=== PATIENT | male | born 1995 | race Caucasian/White ===

== ENCOUNTER 2017-03-29 18:19 | Inpatient (IN) | payer OTHER ==
[~2017-03-29] VITALS: Ht 170.2 cm; Wt 78.5 kg
[2017-03-29] MEDS ORDERED: IPRATRPIUM/ALBUTEROL 0.5/2.5MG 3 ML NEBU. NEB ONE (18:30)
[2017-03-29] MEDS ORDERED: PROAIR HFA8.5 GM INH (18:50)
[2017-03-29] MEDS ORDERED: ALBU2.5V5 NEB (18:50)
[2017-03-29] MEDS ORDERED: methylPREDNISolone SOD SUCC PF 125 MG/2 ML VIAL. IV ONE (19:00)
[2017-03-29] MEDS ORDERED: ALBUTEROL SULFATE 2.5 MG/3 ML NEBU. CONT NEB ONE (20:00)
[2017-03-29] MEDS ORDERED: IV NORMAL SALINE 1000ML BAG 1,000 ML IV SCH (20:08)
[2017-03-29 20:18] LABS: BASO # 0.1 x10^3/uL (0.0-0.2); BASO % 1 % (0-3); EOS % 9 % (0-3); HEMATOCRIT 44.6 % (39.0-53.0); HEMOGLOBIN 15.2 g/dL (13.0-17.5); LYMPH # 1.4 x10^3/uL (1.0-4.8); LYMPH % 13 % (24-48); MEAN CORPUSCULAR HEMOGLOBIN 30 pg (25-35); MEAN CORPUSCULAR HGB CONC 34 g/dL (31-37); MEAN CORPUSCULAR VOLUME 88 fL (79-100); MONO % 8 % (0-9); NEUT % 70 % (31-73); PLATELET COUNT 161 x10^3/uL (140-400); RED BLOOD COUNT 5.05 x10^6/uL (4.30-5.70); RED CELL DISTRIBUTION WIDTH 13.1 % (11.5-14.5); WHITE BLOOD COUNT 10.8 x10^3/uL (4.0-11.0)
--- NOTE | 2017-03-29 20:32 | PHYS DOC ---
Past Medical History Past Medical History: Asthma Past Surgical History: No Surgical History Alcohol Use: Rarely Drug Use: Marijuana Social History Narrative: HAS NOT SMOKED MARIJUANA SINCE EARLY SUMMER Adult General Chief Complaint Chief Complaint: DYSPNEA/RESPIRATOY DISTRESS HPI HPI Patient is a 22 year old male with a history of asthma brought by EMS from an outdoor concert with the complaint of wheezing today. The patient had a breathing treatment at home this morning, then just a while ago he had another one because he keeps a portable nebulizer in his car. In between, he's used his inhaler many times, maybe up to 50 times. Patient has never been intubated. He was seen in ER several months ago but not admitted. Patient has a lifelong history of asthma. Review of Systems Review of Systems Constitutional: Denies fever or chills [] HENT: Denies nasal congestion or sore throat [] Respiratory: As in history of present illness Cardiovascular: Denies chest pain GI: Denies abdominal pain, nausea, vomiting, bloody stools or diarrhea [] : Denies dysuria or hematuria [] Musculoskeletal: Denies back pain or joint pain [] Integument: Denies rash or skin lesions [] Neurologic: Denies headache, focal weakness or sensory changes [] Current Medications Current Medications Current Medications Medications (Trade) Dose Ordered Sig/Khadijah Start Time Stop Time Status Last Admin Dose Admin Albuterol Sulfate (Ventolin Neb Soln) 10 mg 1X ONCE 03/29/17 20:00 03/29/17 20:01 DC 03/29/17 19:45 10 MG Albuterol/ Ipratropium (Duoneb) 3 ml 1X ONCE 03/29/17 18:30 03/29/17 18:50 DC 03/29/17 18:36 3 ML Magnesium Sulfate/ Dextrose 50 ml @ 25 mls/hr 1X ONCE 03/29/17 20:45 03/29/17 22:44 03/29/17 20:31 25 MLS/HR Methylprednisolone Sodium Succinate (SOLU-Medrol 125MG VIAL) 80 mg 1X ONCE 03/29/17 19:00 03/29/17 19:01 DC 03/29/17 19:12 80 MG Sodium Chloride 1,000 ml @ 100 mls/hr Q10H 03/29/17 20:08 03/30/17 06:07 03/29/17 20:31 100 MLS/HR Allergies Allergies Allergies Coded Allergies Type Severity Reaction Last Updated Verified No Known Drug Allergies 03/29/17 No Physical Exam Physical Exam Constitutional: Well developed, well nourished, alert, mentating normally, warm and dry. Appears mildly dyspneic but he is speaking in full sentences. Pulse ox on room air 92-93%. HENT: Normocephalic, atraumatic, bilateral external ears normal, nose normal. [ ] Eyes: conjunctiva normal, no discharge. [] Neck: Normal range of motion, no stridor. No retractions. Cardiovascular:Heart rate regular rhythm, no murmur [] Lungs & Thorax: Moderately decreased breath sounds bilaterally. Prolonged expiratory phase. Inspiratory and expiratory wheezes throughout. Skin: Warm, dry, no erythema, no rash. [] Extremities: No tenderness, no cyanosis, no clubbing, ROM intact, no edema. [] Neurologic: Alert and oriented X 3, normal motor function, normal sensory function, no focal deficits noted. [] Current Patient Data Vital Signs Vital Signs Date Time Temp Pulse Resp B/P (MAP) Pulse Ox O2 Delivery O2 Flow Rate FiO2 03/29/17 20:20 106 13 133/64 (87) 91 Venturi Mask 6.0 03/29/17 18:19 98.4 98.4 Lab Values Laboratory Tests Test 03/29/17 18:26 03/29/17 20:08 White Blood Count 10.8 x10^3/uL (4.0-11.0) Red Blood Count 5.05 x10^6/uL (4.30-5.70) Hemoglobin 15.2 g/dL (13.0-17.5) Hematocrit 44.6 % (39.0-53.0) Mean Corpuscular Volume 88 fL (79-100) Mean Corpuscular Hemoglobin 30 pg (25-35) Mean Corpuscular Hemoglobin Concent 34 g/dL (31-37) Red Cell Distribution Width 13.1 % (11.5-14.5) Platelet Count 161 x10^3/uL (140-400) Neutrophils (%) (Auto) 70 % (31-73) Lymphocytes (%) (Auto) 13 % (24-48) L Monocytes (%) (Auto) 8 % (0-9) Eosinophils (%) (Auto) 9 % (0-3) H Basophils (%) (Auto) 1 % (0-3) Neutrophils # (Auto) 7.5 x10^3uL (1.8-7.7) Lymphocytes # (Auto) 1.4 x10^3/uL (1.0-4.8) Monocytes # (Auto) 0.9 x10^3/uL (0.0-1.1) Eosinophils # (Auto) 0.9 x10^3/uL (0.0-0.7) H Basophils # (Auto) 0.1 x10^3/uL (0.0-0.2) O2 Saturation 93 % (92-99) Arterial Blood pH 7.43 (7.35-7.45) Arterial Blood pCO2 at Patient Temp 37 mmHg (35-46) Arterial Blood pO2 at Patient Temp 67 mmHg (85-108) L Arterial Blood HCO3 24 mmol/L (21-28) Arterial Blood Base Excess 0 mmol/L (-3-3) Oxyhemoglobin 92.4 % Methemoglobin 0.5 % (0.0-1.9) Carbon Monoxide, Quantitative 0.2 % (0.0-1.9) FiO2 28 Laboratory Tests 03/29/17 18:26 EKG EKG [] Radiology/Procedures Radiology/Procedures One view portable chest x-ray read by me. Heart size normal. Lung chaudhary are clear. Flattened hemidiaphragms consistent with hyperinflation. No pneumothorax. [] Course & Med Decision Making Course & Med Decision Making Pertinent Labs and Imaging studies reviewed. (See chart for details) 22-year-old male with a history of asthma presents by EMS after using his inhaler possibly 50 times, and 3 nebulized treatments today, one this morning, one self administered prior to calling 911, and 1 by EMS. The patient presents with inspiratory and expiratory wheezes but is alert and mentating normally and speaking in full sentences. He was given a DuoNeb and a dose of IV steroids. After 1 DuoNeb, nursing staff reported that the patient does not seem to be better and is requesting more nebulized treatments. We began an hour-long nebulizer. I rechecked the patient and he appears more dyspneic, speaking only 3-4 words. Pulse ox 92-93% on 2 L by nasal cannula. He is currently having his hour-long nebulizer with albuterol. Patient tells me that he was up to the bathroom and became very short of air with that minimal exertion. I advised the patient we will need to admit him and also started a magnesium IV infusion. He is agreeable to that plan. I ordered ABGs, I am unclear on whether the patient was on 2 L by nasal cannula or whether he was on room air. He was getting a nebulized albuterol treatment at the time. PH 7.4-5, PCO2 37, P O2 66.7. Hypoxemia without acid-base disturbance. I discussed the case with Dr. davalos, [facility], he will admit the patient. I wrote bridge orders. The patient will be admitted to the intensive care unit for status asthmaticus and worsening while in the emergency department. The patient remains relatively hypoxic in the low 90s on room air. Critical care time 45 minutes including bedside evaluation and multiple re- evaluations, evaluation for change in status after treatments, evaluation of chest x-ray and ABG, documentation, writing orders. [] Dragon Disclaimer Dragon Disclaimer This electronic medical record was generated, in whole or in part, using a voice recognition dictation system. Departure Departure Impression: Primary Impression: Status asthmaticus Disposition: ADMITTED INPATIENT Admitting Physician: Eloisa Davalos Condition: GUARDED Referrals: UNKNOWN PCP NAME (PCP) JUSTINE CAMPOS MD Mar 29, 2017 20:32
[2017-03-29] MEDS ORDERED: MAGNESIUM SULFATE 2GM 50 ML IV ONE (20:45)
[2017-03-29 21:18] LABS: BASE EXCESS COOX 0 mmol/L (-3-3); CARBON MONOXIDE 0.2 % (0.0-1.9); HCO3 COOX 24 mmol/L (21-28); METHEMOGLOBIN 0.5 % (0.0-1.9); OXYHEMOGLOBIN 92.4 %; PCO2 COOX 37 mmHg (35-46); PH COOX 7.43 (7.35-7.45); PO2 COOX 67 mmHg (85-108); SAT O2 COOX 93 % (92-99); TOTAL HEMOGLOBIN 15.9 g/dL
[2017-03-29 21:19] LABS: FIO2 COOX 28
[2017-03-29 21:30] LABS: CALCIUM 8.9 mg/dL (8.5-10.1); CREATININE 0.8 mg/dL (0.7-1.3); GFR 118.8; POTASSIUM 3.7 mmol/L (3.5-5.1)
[2017-03-29 21:36] LABS: ALBUMIN 4.2 g/dL (3.4-5.0); ALBUMIN/GLOBULIN RATIO 1.4 (1.0-1.7); TOTAL BILIRUBIN 0.5 mg/dL (0.2-1.0); TOTAL PROTEIN 7.3 g/dL (6.4-8.2)
[2017-03-29 21:40] VITALS: BP 128/64
[2017-03-29 22:00] VITALS: BP 131/62
[2017-03-29] MEDS ORDERED: NICOTINE 14MG PATCH. TD PRN (22:00)
[2017-03-29] MEDS ORDERED: ALBUTEROL SULFATE 2.5 MG/3 ML NEBU. NEB PRN (22:00)
[2017-03-29] MEDS ORDERED: BUDESONIDE 0.5 MG/2 ML NEBU. NEB ONE (22:00)
--- NOTE | 2017-03-29 22:23 | PDOC1 ---
History and Physical Date of Admission Date of Admission DATE: 03/29/17 TIME: 22:15 Identification/Chief Complaint Chief Complaint short of breath Problems: Source Source: Chart review, Patient History of Present Illness History of Present Illness he has long hx of asthma, has been off Advair for 6 mos, did not get refilled when traveling in [place], he lived there for 6 months. He had been feeling well, was at a concert today, and needed to use his portable neb machine "all Day" about 50 times per the ER note. he is admit to ICU, is marked distress, can talk in almost complete sentences, but then needs to catch his breath, pressing his hands on his thighs to expand his lung volume better when seated no sore throat, large headache with cough, pleuriticu pain with cough, cough with sputum and blood in sputum pain OK at rest, exac seem to 10 wtih events. recent ongoing tobacco use Social History Smoke: <1 pack per day ALCOHOL: none Drugs: None, Other (quit THC) Current Problem List Problem List Problems Medical Problems: (1) Status asthmaticus Status: Acute Problems: Current Medications Current Medications Current Medications Albuterol/ Ipratropium (Duoneb) 3 ml 1X ONCE NEB Last administered on 18:36; Start 03/29/17 at 18:30; Stop 03/29/17 at 18:50; Status DC Methylprednisolone Sodium Succinate (SOLU-Medrol 125MG VIAL) 80 mg 1X ONCE IV Last administered on 03/29/17 19:12; Start 03/29/17 at 19:00; Stop 03/29/17 at 19: 01; Status DC Albuterol Sulfate (Ventolin Neb Soln) 10 mg 1X ONCE CONT NEB Last administered on 03/29/17 19:45; Start 03/29/17 at 20:00; Stop 03/29/17 at 20:01; Status DC Sodium Chloride 1,000 ml @ 100 mls/hr Q10H IV Last administered on 03/29/17 20 :31; Start 03/29/17 at 20:08; Stop 03/30/17 at 06:07 Magnesium Sulfate/ Dextrose 50 ml @ 25 mls/hr 1X ONCE IV Last administered on 03/29/17 20:31; Start 03/29/17 at 20:45; Stop 03/29/17 at 22:44 Sodium Chloride 1,000 ml @ 100 mls/hr Q10H IV ; Start 03/29/17 at 21:15; Stop at 21:14 Albuterol/ Ipratropium (Duoneb) 3 ml Q4HRS NEB ; Start 03/30/17 at 00:00; Stop 03/30/17 at 23:59 Budesonide (Pulmicort) 0.5 mg 1X ONCE NEB ; Start 03/29/17 at 22:00; Stop at 22:01; Status UNV Budesonide (Pulmicort) 0.5 mg RTBID NEB ; Start 03/30/17 at 08:00; Status UNV Active Scripts Active Reported Albuterol Sulfate Neb Soln (Albuterol Sulfate) 2.5 Mg/3 Ml Vial.neb 1 Vial NEB PRN Q4HRS Proair Hfa Inhaler (Albuterol Sulfate) 8.5 Gm Hfa.aer.ad 1 Puff INH PRN Q6HRS PRN Allergies Allergies: Coded Allergies: No Known Drug Allergies (Unverified , 03/29/17) ROS General: YES: Fatigue, Malaise, No: Chills, Night Sweats, Appetite, Other PSYCHOLOGICAL ROS: No: Anxiety, Behavioral Disorder, Concentration difficultie , Decreased libido, Depression, Disorientation, Hallucinations, Hostility, Irritablity, Memory difficulties, Mood Swings, Obsessive thoughts, Physical abuse, Sexual abuse, Sleep disturbances, Suicidal ideation, Other Eyes: No Blurry vision, No Decreased vision, No Double vision, No Dry eyes, No Excessive tearing, No Eye Pain, No Itchy Eyes, No Loss of vision, No Photophobia , No Scotomata, No Uses contacts, No Uses glasses, No Other HEENT: YES: Heacaches, Nasal congestion, No: Visual Changes, Hearing change, Nasal discharge, Oral lesions, Sinus pain , Sore Throat, Epistaxis, Sneezing, Snoring, Tinnitus, Vertigo, Vocal changes, Other Respiratory: YES: Cough, Pleuritic Pain, Sputum Changes, Tachypnea, Wheezing, Other (bloody sputum), No: Hemoptysis, Orthopnea, Shortness of breath, SOB with excertion, Stridor Cardiovascular: yes Chest Pain, No Palpitations, No Orthopnea, No Paroxysmal Noc. Dyspnea, No Edema, No Lt Headedness, No Other Gastrointestinal: No Nausea, No Vomiting, No Abdominal Pain, No Diarrhea, No Constipation, No Melena, No Hematochezia, No Other Genitourinary: No Dysuria, No Frequency, No Incontinence, No Hematuria, No Retention, No Discharge, No Urgency, No Pain, No Flank Pain, No Other, No , No , No , No , No , No , No Musculoskeletal: No Gait Disturbance, No Joint Pain, No Joint Stiffness, No Joint Swelling, No Muscle Pain, No Muscular Weakness, No Pain In:, No Swelling In:, No Other Neurological: No Behavorial Changes, No Bowel/Bladder ControlChng, No Confusion , No Dizziness, No Gait Disturbance, No Headaches, No Impaired Coord/balance, No Memory Loss, No Numbness/Tingling, No Seizures, No Speech Problems, No Tremors, No Visual Changes, No Weakness, No Other Skin: No Dry Skin, No Eczema, No Hair Changes, No Lumps, No Mole Changes, No Mottling, No Nail Changes, No Pruritus, No Rash, No Skin Lesion Changes, No Other, No Acne Physical Exam Physical Exam using accessory muscle to breath, pressing down with his hands on his thighs to expand his chest volume with breaths General: Alert, Oriented X3, Cooperative, severe distress Lungs: Other (limited vol, rales and marked wheeze, very tight sounds on lef,t ) Heart: S1S2, other (tachy) Abdomen: Normal bowel sounds, Soft Rectal Exam: deferred Extremities: No clubbing, No cyanosis, No edema Skin: No rashes, No breakdown, No significant lesion Neuro: Normal speech, Sensation intact, Cranial nerves 3-12 NL Psych/Mental Status: Mental status NL, Mood NL Vitals Vitals Vital Signs Date Time Temp Pulse Resp B/P (MAP) Pulse Ox O2 Delivery O2 Flow Rate FiO2 03/29/17 21:20 102 16 129/59 (82) 94 Venturi Mask 6.0 03/29/17 21:12 99.8 99.8 Labs Labs Laboratory Tests Test 03/29/17 18:26 03/29/17 20:08 03/29/17 21:00 White Blood Count 10.8 x10^3/uL (4.0-11.0) Red Blood Count 5.05 x10^6/uL (4.30-5.70) Hemoglobin 15.2 g/dL (13.0-17.5) Hematocrit 44.6 % (39.0-53.0) Mean Corpuscular Volume 88 fL (79-100) Mean Corpuscular Hemoglobin 30 pg (25-35) Mean Corpuscular Hemoglobin Concent 34 g/dL (31-37) Red Cell Distribution Width 13.1 % (11.5-14.5) Platelet Count 161 x10^3/uL (140-400) Neutrophils (%) (Auto) 70 % (31-73) Lymphocytes (%) (Auto) 13 % (24-48) Monocytes (%) (Auto) 8 % (0-9) Eosinophils (%) (Auto) 9 % (0-3) Basophils (%) (Auto) 1 % (0-3) Neutrophils # (Auto) 7.5 x10^3uL (1.8-7.7) Lymphocytes # (Auto) 1.4 x10^3/uL (1.0-4.8) Monocytes # (Auto) 0.9 x10^3/uL (0.0-1.1) Eosinophils # (Auto) 0.9 x10^3/uL (0.0-0.7) Basophils # (Auto) 0.1 x10^3/uL (0.0-0.2) O2 Saturation 93 % (92-99) Arterial Blood pH 7.43 (7.35-7.45) Arterial Blood pCO2 at Patient Temp 37 mmHg (35-46) Arterial Blood pO2 at Patient Temp 67 mmHg (85-108) Arterial Blood HCO3 24 mmol/L (21-28) Arterial Blood Base Excess 0 mmol/L (-3-3) Oxyhemoglobin 92.4 % Methemoglobin 0.5 % (0.0-1.9) Carbon Monoxide, Quantitative 0.2 % (0.0-1.9) FiO2 28 Sodium Level 141 mmol/L (136-145) Potassium Level 3.7 mmol/L (3.5-5.1) Chloride Level 105 mmol/L (98-107) Carbon Dioxide Level 26 mmol/L (21-32) Anion Gap 10 (6-14) Blood Urea Nitrogen 13 mg/dL (8-26) Creatinine 0.8 mg/dL (0.7-1.3) Estimated GFR (Cockcroft-Gault) 118.8 BUN/Creatinine Ratio 16 (6-20) Glucose Level 100 mg/dL (70-99) Calcium Level 8.9 mg/dL (8.5-10.1) Total Bilirubin 0.5 mg/dL (0.2-1.0) Aspartate Amino Transf (AST/SGOT) 27 U/L (15-37) Alanine Aminotransferase (ALT/SGPT) 30 U/L (16-63) Alkaline Phosphatase 61 U/L (46-116) Total Protein 7.3 g/dL (6.4-8.2) Albumin 4.2 g/dL (3.4-5.0) Albumin/Globulin Ratio 1.4 (1.0-1.7) Laboratory Tests Test 03/29/17 18:26 03/29/17 20:08 03/29/17 21:00 White Blood Count 10.8 x10^3/uL (4.0-11.0) Red Blood Count 5.05 x10^6/uL (4.30-5.70) Hemoglobin 15.2 g/dL (13.0-17.5) Hematocrit 44.6 % (39.0-53.0) Mean Corpuscular Volume 88 fL (79-100) Mean Corpuscular Hemoglobin 30 pg (25-35) Mean Corpuscular Hemoglobin Concent 34 g/dL (31-37) Red Cell Distribution Width 13.1 % (11.5-14.5) Platelet Count 161 x10^3/uL (140-400) Neutrophils (%) (Auto) 70 % (31-73) Lymphocytes (%) (Auto) 13 % (24-48) Monocytes (%) (Auto) 8 % (0-9) Eosinophils (%) (Auto) 9 % (0-3) Basophils (%) (Auto) 1 % (0-3) Neutrophils # (Auto) 7.5 x10^3uL (1.8-7.7) Lymphocytes # (Auto) 1.4 x10^3/uL (1.0-4.8) Monocytes # (Auto) 0.9 x10^3/uL (0.0-1.1) Eosinophils # (Auto) 0.9 x10^3/uL (0.0-0.7) Basophils # (Auto) 0.1 x10^3/uL (0.0-0.2) O2 Saturation 93 % (92-99) Arterial Blood pH 7.43 (7.35-7.45) Arterial Blood pCO2 at Patient Temp 37 mmHg (35-46) Arterial Blood pO2 at Patient Temp 67 mmHg (85-108) Arterial Blood HCO3 24 mmol/L (21-28) Arterial Blood Base Excess 0 mmol/L (-3-3) Oxyhemoglobin 92.4 % Methemoglobin 0.5 % (0.0-1.9) Carbon Monoxide, Quantitative 0.2 % (0.0-1.9) FiO2 28 Sodium Level 141 mmol/L (136-145) Potassium Level 3.7 mmol/L (3.5-5.1) Chloride Level 105 mmol/L (98-107) Carbon Dioxide Level 26 mmol/L (21-32) Anion Gap 10 (6-14) Blood Urea Nitrogen 13 mg/dL (8-26) Creatinine 0.8 mg/dL (0.7-1.3) Estimated GFR (Cockcroft-Gault) 118.8 BUN/Creatinine Ratio 16 (6-20) Glucose Level 100 mg/dL (70-99) Calcium Level 8.9 mg/dL (8.5-10.1) Total Bilirubin 0.5 mg/dL (0.2-1.0) Aspartate Amino Transf (AST/SGOT) 27 U/L (15-37) Alanine Aminotransferase (ALT/SGPT) 30 U/L (16-63) Alkaline Phosphatase 61 U/L (46-116) Total Protein 7.3 g/dL (6.4-8.2) Albumin 4.2 g/dL (3.4-5.0) Albumin/Globulin Ratio 1.4 (1.0-1.7) VTE Prophylaxis Ordered VTE Prophylaxis Devices: No VTE Pharmacological Prophylaxi: Yes Assessment/Plan Assessment/Plan acute hypoxia, respiratory failure not SIRS, tachypnea wasnt documented, tachycardia due to #3 asthma, acute exacerbation with bronchitis, start IV steroid, steroid nebs Q4 and PRN neds, abx X2, he reports prior infectious bronchitis got him this sick tobacco use, should stop admit to ICU LA MENESES MD Mar 29, 2017 22:23
[2017-03-29] MEDS ORDERED: DOXYCYCLINE HYCLATE 100 MG TABLET PO ONE (22:30)
[2017-03-29] MEDS: ENOXAPARIN 40 MG/0.4 ML SYRINGE. SQ SCH (22:30)
[2017-03-29] MEDS: MONTELUKAST SODIUM 10 MG TABLET. PO SCH (22:43)
[2017-03-29] MEDS: IV NORMAL SALINE 1000ML BAG 1,000 ML IV SCH (22:43)
[2017-03-29] MEDS: MORPHINE SULFATE 4 MG/ML DISP.SYRIN. IV PRN (22:46)
[2017-03-29] MEDS: IPRATRPIUM/ALBUTEROL 0.5/2.5MG 3 ML NEBU. NEB SCH (22:58)
[2017-03-29 23:00] VITALS: BP 126/80
[2017-03-30] VITALS (23 sets, daily range): BP systolic 102–154; BP diastolic 51–79
[2017-03-30] MEDS: oxyCODONE/APAP 5/325 1 TAB TABLET PO PRN ×2 (00:05→11:46)
[2017-03-30] MEDS: MORPHINE SULFATE 4 MG/ML DISP.SYRIN. IV PRN ×5 (00:56→19:56)
[2017-03-30] MEDS: IPRATRPIUM/ALBUTEROL 0.5/2.5MG 3 ML NEBU. NEB SCH ×6 (04:22→23:36)
[2017-03-30] MEDS: IV NORMAL SALINE 1000ML BAG 1,000 ML IV SCH ×2 (06:16→16:48)
[2017-03-30] MEDS: DOXYCYCLINE HYCLATE 100 MG TABLET PO SCH ×2 (06:17→08:24)
[2017-03-30] MEDS: BUDESONIDE 0.5 MG/2 ML NEBU. NEB SCH ×2 (08:02→21:01)
--- NOTE | 2017-03-30 08:19 | RAD ---
Portable chest, 03/29/2017: History: Shortness of breath, asthma The heart size is normal. The lungs are clear. There is no evidence of pleural fluid or pneumothorax. IMPRESSION: No significant cardiopulmonary abnormality is detected.
[2017-03-30] MEDS ORDERED: ACETAMINOPHEN 500 MG TABLET PO PRN (09:00)
[2017-03-30] MEDS ORDERED: ONDANSETRON PF 4 MG/2 ML VIAL. IV PRN (09:00)
[2017-03-30] MEDS ORDERED: predniSONE 20 MG TABLET PO SCH (09:00)
--- NOTE | 2017-03-30 10:05 | PDOC ---
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 Vitals Vitals Vital Signs Date Time Temp Pulse Resp B/P (MAP) Pulse Ox O2 Delivery O2 Flow Rate FiO2 03/30/17 09:00 86 28 127/67 (87) 94 NonRebreather Mask 03/30/17 08:05 12.0 03/30/17 08:00 97.6 97.6 Physical Exam General: Alert, Oriented X3, Cooperative, severe distress Abdomen: Normal bowel sounds, Soft Extremities: No clubbing, No cyanosis, No edema Skin: No rashes, No breakdown, No significant lesion Labs LABS Laboratory Tests Test 03/29/17 18:26 03/29/17 20:08 03/29/17 21:00 White Blood Count 10.8 x10^3/uL (4.0-11.0) Red Blood Count 5.05 x10^6/uL (4.30-5.70) Hemoglobin 15.2 g/dL (13.0-17.5) Hematocrit 44.6 % (39.0-53.0) Mean Corpuscular Volume 88 fL (79-100) Mean Corpuscular Hemoglobin 30 pg (25-35) Mean Corpuscular Hemoglobin Concent 34 g/dL (31-37) Red Cell Distribution Width 13.1 % (11.5-14.5) Platelet Count 161 x10^3/uL (140-400) Neutrophils (%) (Auto) 70 % (31-73) Lymphocytes (%) (Auto) 13 % (24-48) Monocytes (%) (Auto) 8 % (0-9) Eosinophils (%) (Auto) 9 % (0-3) Basophils (%) (Auto) 1 % (0-3) Neutrophils # (Auto) 7.5 x10^3uL (1.8-7.7) Lymphocytes # (Auto) 1.4 x10^3/uL (1.0-4.8) Monocytes # (Auto) 0.9 x10^3/uL (0.0-1.1) Eosinophils # (Auto) 0.9 x10^3/uL (0.0-0.7) Basophils # (Auto) 0.1 x10^3/uL (0.0-0.2) O2 Saturation 93 % (92-99) Arterial Blood pH 7.43 (7.35-7.45) Arterial Blood pCO2 at Patient Temp 37 mmHg (35-46) Arterial Blood pO2 at Patient Temp 67 mmHg (85-108) Arterial Blood HCO3 24 mmol/L (21-28) Arterial Blood Base Excess 0 mmol/L (-3-3) Oxyhemoglobin 92.4 % Methemoglobin 0.5 % (0.0-1.9) Carbon Monoxide, Quantitative 0.2 % (0.0-1.9) FiO2 28 Sodium Level 141 mmol/L (136-145) Potassium Level 3.7 mmol/L (3.5-5.1) Chloride Level 105 mmol/L (98-107) Carbon Dioxide Level 26 mmol/L (21-32) Anion Gap 10 (6-14) Blood Urea Nitrogen 13 mg/dL (8-26) Creatinine 0.8 mg/dL (0.7-1.3) Estimated GFR (Cockcroft-Gault) 118.8 BUN/Creatinine Ratio 16 (6-20) Glucose Level 100 mg/dL (70-99) Calcium Level 8.9 mg/dL (8.5-10.1) Total Bilirubin 0.5 mg/dL (0.2-1.0) Aspartate Amino Transf (AST/SGOT) 27 U/L (15-37) Alanine Aminotransferase (ALT/SGPT) 30 U/L (16-63) Alkaline Phosphatase 61 U/L (46-116) Total Protein 7.3 g/dL (6.4-8.2) Albumin 4.2 g/dL (3.4-5.0) Albumin/Globulin Ratio 1.4 (1.0-1.7) Review of Systems Review of Systems SOA, chest pain sec to coughing Assessment and Plan Assessmemt and Plan Problems Medical Problems: (1) Status asthmaticus Status: Acute Problems: Comment Review of Relevant I have reviewed the following items tory (where applicable) has been applied. Labs Laboratory Tests Test 03/29/17 18:26 03/29/17 20:08 03/29/17 21:00 White Blood Count 10.8 x10^3/uL (4.0-11.0) Red Blood Count 5.05 x10^6/uL (4.30-5.70) Hemoglobin 15.2 g/dL (13.0-17.5) Hematocrit 44.6 % (39.0-53.0) Mean Corpuscular Volume 88 fL (79-100) Mean Corpuscular Hemoglobin 30 pg (25-35) Mean Corpuscular Hemoglobin Concent 34 g/dL (31-37) Red Cell Distribution Width 13.1 % (11.5-14.5) Platelet Count 161 x10^3/uL (140-400) Neutrophils (%) (Auto) 70 % (31-73) Lymphocytes (%) (Auto) 13 % (24-48) Monocytes (%) (Auto) 8 % (0-9) Eosinophils (%) (Auto) 9 % (0-3) Basophils (%) (Auto) 1 % (0-3) Neutrophils # (Auto) 7.5 x10^3uL (1.8-7.7) Lymphocytes # (Auto) 1.4 x10^3/uL (1.0-4.8) Monocytes # (Auto) 0.9 x10^3/uL (0.0-1.1) Eosinophils # (Auto) 0.9 x10^3/uL (0.0-0.7) Basophils # (Auto) 0.1 x10^3/uL (0.0-0.2) O2 Saturation 93 % (92-99) Arterial Blood pH 7.43 (7.35-7.45) Arterial Blood pCO2 at Patient Temp 37 mmHg (35-46) Arterial Blood pO2 at Patient Temp 67 mmHg (85-108) Arterial Blood HCO3 24 mmol/L (21-28) Arterial Blood Base Excess 0 mmol/L (-3-3) Oxyhemoglobin 92.4 % Methemoglobin 0.5 % (0.0-1.9) Carbon Monoxide, Quantitative 0.2 % (0.0-1.9) FiO2 28 Sodium Level 141 mmol/L (136-145) Potassium Level 3.7 mmol/L (3.5-5.1) Chloride Level 105 mmol/L (98-107) Carbon Dioxide Level 26 mmol/L (21-32) Anion Gap 10 (6-14) Blood Urea Nitrogen 13 mg/dL (8-26) Creatinine 0.8 mg/dL (0.7-1.3) Estimated GFR (Cockcroft-Gault) 118.8 BUN/Creatinine Ratio 16 (6-20) Glucose Level 100 mg/dL (70-99) Calcium Level 8.9 mg/dL (8.5-10.1) Total Bilirubin 0.5 mg/dL (0.2-1.0) Aspartate Amino Transf (AST/SGOT) 27 U/L (15-37) Alanine Aminotransferase (ALT/SGPT) 30 U/L (16-63) Alkaline Phosphatase 61 U/L (46-116) Total Protein 7.3 g/dL (6.4-8.2) Albumin 4.2 g/dL (3.4-5.0) Albumin/Globulin Ratio 1.4 (1.0-1.7) Laboratory Tests Test 03/29/17 18:26 03/29/17 20:08 03/29/17 21:00 White Blood Count 10.8 x10^3/uL (4.0-11.0) Red Blood Count 5.05 x10^6/uL (4.30-5.70) Hemoglobin 15.2 g/dL (13.0-17.5) Hematocrit 44.6 % (39.0-53.0) Mean Corpuscular Volume 88 fL (79-100) Mean Corpuscular Hemoglobin 30 pg (25-35) Mean Corpuscular Hemoglobin Concent 34 g/dL (31-37) Red Cell Distribution Width 13.1 % (11.5-14.5) Platelet Count 161 x10^3/uL (140-400) Neutrophils (%) (Auto) 70 % (31-73) Lymphocytes (%) (Auto) 13 % (24-48) Monocytes (%) (Auto) 8 % (0-9) Eosinophils (%) (Auto) 9 % (0-3) Basophils (%) (Auto) 1 % (0-3) Neutrophils # (Auto) 7.5 x10^3uL (1.8-7.7) Lymphocytes # (Auto) 1.4 x10^3/uL (1.0-4.8) Monocytes # (Auto) 0.9 x10^3/uL (0.0-1.1) Eosinophils # (Auto) 0.9 x10^3/uL (0.0-0.7) Basophils # (Auto) 0.1 x10^3/uL (0.0-0.2) O2 Saturation 93 % (92-99) Arterial Blood pH 7.43 (7.35-7.45) Arterial Blood pCO2 at Patient Temp 37 mmHg (35-46) Arterial Blood pO2 at Patient Temp 67 mmHg (85-108) Arterial Blood HCO3 24 mmol/L (21-28) Arterial Blood Base Excess 0 mmol/L (-3-3) Oxyhemoglobin 92.4 % Methemoglobin 0.5 % (0.0-1.9) Carbon Monoxide, Quantitative 0.2 % (0.0-1.9) FiO2 28 Sodium Level 141 mmol/L (136-145) Potassium Level 3.7 mmol/L (3.5-5.1) Chloride Level 105 mmol/L (98-107) Carbon Dioxide Level 26 mmol/L (21-32) Anion Gap 10 (6-14) Blood Urea Nitrogen 13 mg/dL (8-26) Creatinine 0.8 mg/dL (0.7-1.3) Estimated GFR (Cockcroft-Gault) 118.8 BUN/Creatinine Ratio 16 (6-20) Glucose Level 100 mg/dL (70-99) Calcium Level 8.9 mg/dL (8.5-10.1) Total Bilirubin 0.5 mg/dL (0.2-1.0) Aspartate Amino Transf (AST/SGOT) 27 U/L (15-37) Alanine Aminotransferase (ALT/SGPT) 30 U/L (16-63) Alkaline Phosphatase 61 U/L (46-116) Total Protein 7.3 g/dL (6.4-8.2) Albumin 4.2 g/dL (3.4-5.0) Albumin/Globulin Ratio 1.4 (1.0-1.7) Medications Current Medications Albuterol/ Ipratropium (Duoneb) 3 ml 1X ONCE NEB Last administered on t 18:36; Start 03/29/17 at 18:30; Stop 03/29/17 at 18:50; Status DC Methylprednisolone Sodium Succinate (SOLU-Medrol 125MG VIAL) 80 mg 1X ONCE IV Last administered on 03/29/17 19:12; Start 03/29/17 at 19:00; Stop 03/29/17 at 19: 01; Status DC Albuterol Sulfate (Ventolin Neb Soln) 10 mg 1X ONCE CONT NEB Last administered on 03/29/17 19:45; Start 03/29/17 at 20:00; Stop 03/29/17 at 20:01; Status DC Sodium Chloride 1,000 ml @ 100 mls/hr Q10H IV Last administered on 03/29/17 20 :31; Start 03/29/17 at 20:08; Stop 03/30/17 at 06:07; Status DC Magnesium Sulfate/ Dextrose 50 ml @ 25 mls/hr 1X ONCE IV Last administered on 03/29/17 20:31; Start 03/29/17 at 20:45; Stop 03/29/17 at 22:44; Status DC Sodium Chloride 1,000 ml @ 100 mls/hr Q10H IV Last administered on 03/30/17 06:16; Start 03/29/17 at 21:15; Stop 03/30/17 at 21:14 Albuterol/ Ipratropium (Duoneb) 3 ml Q4HRS NEB Last administered on 03/30/17 08:02; Start 03/30/17 at 00:00; Stop 03/30/17 at 23:59 Budesonide (Pulmicort) 0.5 mg 1X ONCE NEB Last administered on 03/29/17 22:00 ; Start 03/29/17 at 22:00; Stop 03/29/17 at 22:01; Status DC Budesonide (Pulmicort) 0.5 mg RTBID NEB Last administered on 03/30/17 08:02; Start 03/30/17 at 08:00 Montelukast Sodium (Singulair) 10 mg QHS PO Last administered on 03/29/17 22:43 ; Start 03/29/17 at 22:00 Oxycodone/ Acetaminophen (Percocet 5/325) 1 tab PRN Q4HRS PRN PO PAIN Last administered on 03/30/17 00:05; Start 03/29/17 at 22:00 Morphine Sulfate 4 mg PRN Q2HR PRN IV PAIN Last administered on 03/30/17 08:21 ; Start 03/29/17 at 22:00 Nicotine (Nicoderm Cq 14mg) 1 patch PRN DAILY PRN TD SMOKING CESSATION; Start 03/29/17 at 22:00 Albuterol Sulfate (Ventolin Neb Soln) 2.5 mg PRN Q4HRS PRN NEB SHORTNESS OF BREATH; Start 03/29/17 at 22:00 Prednisone (Prednisone) 60 mg DAILY PO Last administered on 03/30/17 08:24; Start 03/30/17 at 09:00 Enoxaparin Sodium (Lovenox Per Pharmacy Prophylaxis Dosing) 1 each PRN DAILY PRN MC SEE COMMENTS; Start 03/29/17 at 22:00 Ceftriaxone Sodium 1 gm/ Sodium Chloride 50 ml @ 100 mls/hr Q24H IV Last administered on 03/29/17 22:45; Start 03/29/17 at 22:30 Doxycycline Hyclate (Vibra-Tab) 100 mg [id number] PO Last administered on 03/30/17 08:24; Start 03/30/17 at 07:00 Doxycycline Hyclate (Vibra-Tab) 100 mg 1X ONCE PO Last administered on 22:44; Start 03/29/17 at 22:30; Stop 03/29/17 at 22:31; Status DC Enoxaparin Sodium (Lovenox 40mg Syringe) 40 mg Q24H SQ ; Start 03/29/17 at 22:30 Acetaminophen (Tylenol) 500 mg PRN Q6HRS PRN PO MILD PAIN / TEMP; Start at 09:00 Ondansetron HCl (Zofran) 4 mg PRN Q6HRS PRN IV NAUSEA/VOMITING 1ST CHOICE; Start 03/30/17 at 09:00 Guaifenesin (Robitussin Dm) 10 ml PRN Q6HRS PRN PO COUGH 1ST CHOICE; Start 05/06 at 09:00 Active Scripts Active Reported Albuterol Sulfate Neb Soln (Albuterol Sulfate) 2.5 Mg/3 Ml Vial.neb 1 Vial NEB PRN Q4HRS Proair Hfa Inhaler (Albuterol Sulfate) 8.5 Gm Hfa.aer.ad 1 Puff INH PRN Q6HRS PRN Vitals/I & O Vital Sign - Last 24 Hours 03/29/17 03/29/17 03/29/17 03/29/17 18:19 18:20 18:39 18:50 Temp 98.4 98.4 Pulse 114 102 96 Resp 19 15 B/P (MAP) 168/67 (100) 168/67 (100) 118/53 (74) Pulse Ox 96 95 96 O2 Delivery Room Air Room Air Room Air 03/29/17 03/29/17 03/29/17 03/29/17 19:20 19:36 19:56 20:20 Pulse 104 114 106 Resp 15 19 13 B/P (MAP) 142/65 (90) 126/83 (97) 133/64 (87) Pulse Ox 94 97 95 91 O2 Delivery Room Air Nasal Cannula Nasal Cannula Venturi Mask O2 Flow Rate 2.0 2.0 6.0 03/29/17 03/29/17 03/29/17 03/29/17 21:12 21:20 21:40 22:00 Temp 99.8 99.7 99.8 99.7 Pulse 102 102 102 Resp 16 13 20 B/P (MAP) 129/59 (82) 128/64 (85) 131/62 (85) Pulse Ox 94 94 94 O2 Delivery Venturi Mask Venturi Mask Venturi Mask O2 Flow Rate 6.0 6.0 6.0 03/29/17 03/29/17 03/29/17 03/30/17 22:46 22:59 23:00 00:00 Temp 98.3 98.3 Pulse 108 Resp 21 B/P (MAP) 126/80 (95) Pulse Ox 94 94 94 O2 Delivery Venturi Mask Venturi Mask Venturi Mask O2 Flow Rate 6.0 6.0 6.0 15.0 03/30/17 03/30/17 03/30/17 03/30/17 00:05 00:56 01:00 02:00 Pulse 90 87 Resp 14 24 24 21 B/P (MAP) 138/61 (86) 138/61 (86) Pulse Ox 92 91 90 90 O2 Delivery Venturi Mask Venturi Mask Venturi Mask Venturi Mask O2 Flow Rate 6.0 12.0 12.0 12.0 03/30/17 03/30/17 03/30/17 03/30/17 02:59 03:00 03:15 04:00 Temp 99.7 97.8 99.7 97.8 Pulse 102 82 70 Resp 15 23 26 B/P (MAP) 128/64 (85) 128/64 (85) 108/58 (75) Pulse Ox 94 91 91 O2 Delivery Venturi Mask Venturi Mask Venturi Mask NonRebreather Mask O2 Flow Rate 6.0 15.0 6.0 15.0 03/30/17 03/30/17 03/30/17 03/30/17 04:00 04:24 05:00 06:00 Pulse 79 79 Resp 24 26 B/P (MAP) 117/57 (77) 110/56 (74) Pulse Ox 94 95 99 O2 Delivery Non-Rebreather NonRebreather Mask NonRebreather Mask O2 Flow Rate 10.0 10.0 15.0 15.0 03/30/17 03/30/17 03/30/17 03/30/17 07:00 08:00 08:00 08:05 Temp 97.6 97.6 Pulse 76 74 Resp 26 25 B/P (MAP) 124/57 (79) 114/53 (73) Pulse Ox 97 98 99 O2 Delivery NonRebreather Mask Non-Rebreather NonRebreather Mask NonRebreather Mask O2 Flow Rate 12.0 03/30/17 09:00 Pulse 86 Resp 28 B/P (MAP) 127/67 (87) Pulse Ox 94 O2 Delivery NonRebreather Mask MAY NUNEZ MD Mar 30, 2017 10:05
--- NOTE | 2017-03-30 11:33 | PDOC ---
Provider Note Provider Note dictated POLO DOMINGUEZ MD Mar 30, 2017 11:33
[2017-03-30] MEDS: methylPREDNISolone SOD SUCC PF 125 MG/2 ML VIAL. IV SCH ×2 (11:44→21:20)
[2017-03-30] MEDS: guaiFENesin DM 200MG/20MG 10 ML SYRUP PO PRN ×2 (11:47→21:19)
--- NOTE | 2017-03-30 12:14 | CONS ---
DATE OF CONSULTATION: PULMONARY CONSULTATION ATTENDING PHYSICIAN: Eloisa Mojica M.D. REASON FOR CONSULTATION: Status asthmaticus. HISTORY OF PRESENT ILLNESS: The patient is a 22-year-old male who has asthma since childhood. He never outgrew it. He says this is his first hospitalization for asthma exacerbation. He never had respiratory failure. The patient came into the hospital after he had shortness of breath which came on rather suddenly. The patient says he had a cough which has been productive of lionel brown sputum. No fever, no chills. He had chest pains, neck pains and back pains. He had some headache as well. He tried ProAir multiple puffs, without any improvement. As a result, he was hospitalized. As a maintenance inhaler, he said he has tried Advair, Asmanex and Flovent in the past, which have not worked well for him. He does smoke cigarettes since the last 5 years, but no history of drug use. He was given [id number] nebulizer treatments. He has been hospitalized in the ICU. ABG showed a pH of 7.43, pCO2 of 37 and pO2 of 67 on 28% FIO2. However, currently, he is requiring nonrebreather mask with saturation of 94% to 97%. I have been asked to see him for further evaluation. PAST MEDICAL HISTORY: History of asthma since childhood. PAST SURGICAL HISTORY: No surgeries. ALLERGIES: None. MEDICATIONS: All reviewed as listed in the MRAD. REVIEW OF SYSTEMS: Twelve-point system obtained. Pertinent positives discussed in history of present illness, otherwise noncontributory. All systems that were negative were reviewed as well. SOCIAL HISTORY: Smoker for the last 5 years. Has history of marijuana use in the past. FAMILY HISTORY: Noncontributory to lungs. PHYSICAL EXAMINATION: VITAL SIGNS: Stable. Pulse ox 94% on nonrebreather mask. Afebrile. HEENT: Sclerae nonicteric. NECK: Supple. LUNGS: With bilateral expiratory wheezes. CARDIOVASCULAR EXAMINATION: Regular rate. ABDOMEN: Soft, nontender. EXTREMITIES: No pitting edema. LABORATORY DATA: Labs were reviewed. His chemistries show a BUN of 13, creatinine 0.8. White cell count 10.8, hemoglobin 15.2 and platelets are 161,000. IMPRESSION: 1. Status asthmaticus in a patient who has history of asthma since childhood and never outgrew it. His asthma is under suboptimal control since most of his life and has failed to respond to steroid inhalers. This episode is probably triggered by postnasal drainage and acute bronchitis. 2. Hypoxia, which is out of proportion to the clinical findings. He is currently on a nonrebreather mask. At this point, I would recommend CT angio to rule out any thromboembolic disease. I would also recommend doing an echo with bubble study to rule out any shunt. 3. The patient would benefit from outpatient Xolair therapy and we will obtain IgE levels if he qualifies. 4. Acute bronchitis with lionel brown sputum production and a clear chest x- ray. suspect Bronchitis. RECOMMENDATIONS: 1. Continue with present DuoNeb q. 4 hours and p.r.n. albuterol. Does not need BIPAP or intubation at present. 2. Continue with Pulmicort nebulizer b.i.d. 3. Discontinue oral prednisone and change to IV Solu-Medrol. 4. CTA chest to rule out thromboembolic disease. 5. Echo with bubble study to assess for any shunt. 6. Continue present empiric antibiotics. 7. Lovenox for deep venous thrombosis prophylaxis. 8. As an outpatient, he may benefit from Xolair treatment to have a better control of his asthma, if his IgE levels are high. I will obtain those today. 9. Continue with Singulair. 10. Discussed with RN and we will keep him in the ICU today. Pt is from [place] and once clinically better, can be followed by pulmonary in [place] Critical care time 37 minutes. POLO DOMINGUEZ MD DR: TIFFANIE/chioma JOB#: [id number] / [id number] WAGNER
[2017-03-30] MEDS ORDERED: IOHEXOL 300 MG/ML 75 ML VIAL IV ONE (13:00)
[2017-03-30] MEDS ORDERED: CONTRAST GIVEN MC PRN (13:00)
--- NOTE | 2017-03-30 15:34 | RAD ---
CTA of the chest with contrast, 2016: History: Hypoxia Multidetector CT imaging was performed following an IV bolus injection of iodinated contrast material. Multiplanar reconstructions were produced including coronal MIP images. The central pulmonary arteries are well opacified and no filling defects are seen to suggest pulmonary emboli. The thoracic aorta is unremarkable. Several small mediastinal and hilar lymph nodes are evident without definite pathologic enlargement. There are moderate patchy airspace opacities in both lungs, more so on the right. The most prominent infiltrates lie peripherally in the right lower lobe, although there are additional patchy infiltrates peripherally and centrally in both lungs. The intervening lung parenchyma shows no evidence of interstitial disease, nodularity or other abnormality. No central bronchial obstructive process is seen. There is no evidence of pleural fluid. IMPRESSION: 1. No CT evidence of central pulmonary emboli. 2. Moderate patchy bilateral airspace opacities. Diagnostic considerations include pneumonia on an infectious or hypersensitivity basis, cryptogenic organizing pneumonia, pulmonary hemorrhage or other rare entities such as alveolar proteinosis. PQRS Compliance Statement: One or more of the following individualized dose reduction techniques were utilized for this examination: 1. Automated exposure control 2. Adjustment of the mA and/or kV according to patient size 3. Use of iterative reconstruction technique
[2017-03-30] MEDS: BENZOCAINE/MENTHOL LOZENGE. PO PRN ×2 (16:47→21:19)
[2017-03-30] MEDS: MONTELUKAST SODIUM 10 MG TABLET. PO SCH (19:54)
[2017-03-30] MEDS: ENOXAPARIN 40 MG/0.4 ML SYRINGE. SQ SCH (21:22)
[2017-03-31] VITALS (24 sets, daily range): BP systolic 99–151; BP diastolic 46–73
--- NOTE | 2017-03-31 01:00 | ACF ---
Admission Forms Criteria ASTHMA Clinical Indications for Admission to Inpatient Care ([place]/check or initial the applicable condition/criteria) Admission is indicated for ANY ONE of the following (1)(2)(3)(4): [ ]I. Ventilatory support required [ ]II. Peak expiratory flow rate less than 25% of predicted or personal best before treatment [ ]III. Peak expiratory flow rate less than 40% of predicted or personal best after treatment [ ]IV. Peak expiratory flow rate between 40% and 60% of predicted or personal best after treatment, and ANY ONE of the following: [ ]a) History of asthma requiring intubation [ ]b) Hospitalization for asthma within the past year [ ]c) Current or recent use of oral corticosteroids for asthma [ ]d) Use of more than 1 canister of inhaled beta2-agonist in past month [ ]e) Exacerbation due to allergic reaction to food [ ]f) Inadequate access to medical care or medications [ ]g) Adherence to post-discharge asthma regimen cannot be assured (eg, psychosocial problems, poor adherence, no available follow-up care) [ ]V. Hypoxemia [ ]. PaCO2 elevation from baseline by 2 mm Hg (0.27 kPa) or greater [ ]VII. Cyanosis [ ]VIII. Silent chest (absent or markedly diminished breath sounds) [ ]IX. Cardiac dysrhythmia (eg, Bradycardia) [ ]X. Hemodynamic instability [ ]XI. Altered mental status [ ]XII. Radiographic evidence of complication requiring inpatient treatment (eg, pneumonia, pneumothorax) [X]XIII. Inpatient admission required[A] rather than observation care because of ANY ONE of the following: [X]a) Respiratory finding that is severe or persistent (eg, dyspnea, Tachypnea, accessory muscle use) [ ]b) Other condition, treatment, or monitoring requiring inpatient admission Extended stay beyond goal length of stay may be needed for (1)(25)(27): [ ]a) Severe respiratory distress or respiratory failure (22)(23)(28)(29) [ ]b) Secondary causes and complications (24) [ ]c) Status asthmaticus [ ]d) Chronic obstructive asthma (eg, asthma-COPD overlap syndrome) (30) [ ]e) Older patients (65 years or older) (28) [ ]f) Slow resolution [ ]g) Clinically significant exacerbation of comorbidities (e.g., congestive heart failure,atrial fibrillation) The original [facility] content created by [facility] has been revised. The portions of the content which have been revised are identified through the use of italic text, and [facility] has neither reviewed nor approved the modified material. All other unmodified content is copyright [facility] Please see references footnoted in the original [facility] edition 2015 Admission Criteria Met?: Yes SHAREE SUTTON Mar 31, 2017 01:00
[2017-03-31] MEDS: IPRATRPIUM/ALBUTEROL 0.5/2.5MG 3 ML NEBU. NEB SCH ×6 (04:20→23:03)
[2017-03-31] MEDS: DOXYCYCLINE HYCLATE 100 MG TABLET PO SCH ×2 (06:13→17:49)
[2017-03-31] MEDS: methylPREDNISolone SOD SUCC PF 125 MG/2 ML VIAL. IV SCH ×3 (06:13→22:15)
[2017-03-31] MEDS: BENZOCAINE/MENTHOL LOZENGE. PO PRN ×3 (06:33→20:29)
[2017-03-31] MEDS ORDERED: IPRATRPIUM/ALBUTEROL 0.5/2.5MG 3 ML NEBU. NEB SCH (08:00)
[2017-03-31] MEDS: guaiFENesin DM 200MG/20MG 10 ML SYRUP PO PRN ×2 (08:49→20:31)
--- NOTE | 2017-03-31 08:50 | PDOC ---
PULMONARY PROGRESS NOTES Vitals Vital Signs Date Time Temp Pulse Resp B/P (MAP) Pulse Ox O2 Delivery O2 Flow Rate FiO2 03/31/17 06:00 82 17 118/52 (74) 99 NonRebreather Mask 15.0 03/31/17 03:00 97.7 97.7 Labs Laboratory Tests Test 03/29/17 18:26 03/29/17 20:08 03/29/17 21:00 White Blood Count 10.8 x10^3/uL (4.0-11.0) Red Blood Count 5.05 x10^6/uL (4.30-5.70) Hemoglobin 15.2 g/dL (13.0-17.5) Hematocrit 44.6 % (39.0-53.0) Mean Corpuscular Volume 88 fL (79-100) Mean Corpuscular Hemoglobin 30 pg (25-35) Mean Corpuscular Hemoglobin Concent 34 g/dL (31-37) Red Cell Distribution Width 13.1 % (11.5-14.5) Platelet Count 161 x10^3/uL (140-400) Neutrophils (%) (Auto) 70 % (31-73) Lymphocytes (%) (Auto) 13 % (24-48) Monocytes (%) (Auto) 8 % (0-9) Eosinophils (%) (Auto) 9 % (0-3) Basophils (%) (Auto) 1 % (0-3) Neutrophils # (Auto) 7.5 x10^3uL (1.8-7.7) Lymphocytes # (Auto) 1.4 x10^3/uL (1.0-4.8) Monocytes # (Auto) 0.9 x10^3/uL (0.0-1.1) Eosinophils # (Auto) 0.9 x10^3/uL (0.0-0.7) Basophils # (Auto) 0.1 x10^3/uL (0.0-0.2) O2 Saturation 93 % (92-99) Arterial Blood pH 7.43 (7.35-7.45) Arterial Blood pCO2 at Patient Temp 37 mmHg (35-46) Arterial Blood pO2 at Patient Temp 67 mmHg (85-108) Arterial Blood HCO3 24 mmol/L (21-28) Arterial Blood Base Excess 0 mmol/L (-3-3) Oxyhemoglobin 92.4 % Methemoglobin 0.5 % (0.0-1.9) Carbon Monoxide, Quantitative 0.2 % (0.0-1.9) FiO2 28 Sodium Level 141 mmol/L (136-145) Potassium Level 3.7 mmol/L (3.5-5.1) Chloride Level 105 mmol/L (98-107) Carbon Dioxide Level 26 mmol/L (21-32) Anion Gap 10 (6-14) Blood Urea Nitrogen 13 mg/dL (8-26) Creatinine 0.8 mg/dL (0.7-1.3) Estimated GFR (Cockcroft-Gault) 118.8 BUN/Creatinine Ratio 16 (6-20) Glucose Level 100 mg/dL (70-99) Calcium Level 8.9 mg/dL (8.5-10.1) Total Bilirubin 0.5 mg/dL (0.2-1.0) Aspartate Amino Transf (AST/SGOT) 27 U/L (15-37) Alanine Aminotransferase (ALT/SGPT) 30 U/L (16-63) Alkaline Phosphatase 61 U/L (46-116) Total Protein 7.3 g/dL (6.4-8.2) Albumin 4.2 g/dL (3.4-5.0) Albumin/Globulin Ratio 1.4 (1.0-1.7) Medications Active Scripts Medications Dose Route/Sig Max Daily Dose Days Date Category Albuterol Sulfate Neb Soln (Albuterol Sulfate) 2.5 Mg/3 Ml Vial.neb 1 Vial NEB PRN Q4HRS 03/29/17 Reported Proair Hfa Inhaler (Albuterol Sulfate) 8.5 Gm Hfa.aer.ad 1 Puff INH PRN Q6HRS PRN 03/29/17 Reported SAMANTHA JAIMES MD Mar 31, 2017 08:50
[2017-03-31] MEDS: BUDESONIDE 0.5 MG/2 ML NEBU. NEB SCH ×2 (08:51→19:26)
--- NOTE | 2017-03-31 08:51 | PDOC ---
PROGRESS NOTES Chief Complaint Chief Complaint Status asthmaticus acute hypoxic respiratory failure Sinus tachy sec to above Acute bronchitis tobacco use, History of Present Illness History of Present Illness Seen in ICU On nebs/face mask NOt eating much yet bec of breathing issues Still wheezy but better than on admit Advised on his smoking STill tight air entry, audible wheezing anterior and posterior chest PLAN: CPM Cok to t.o ICU if also ok with pulmo Dw LICENSED MORTICIAN Vitals Vitals Vital Signs Date Time Temp Pulse Resp B/P (MAP) Pulse Ox O2 Delivery O2 Flow Rate FiO2 03/31/17 06:00 82 17 118/52 (74) 99 NonRebreather Mask 15.0 03/31/17 03:00 97.7 97.7 Physical Exam General: Alert, Oriented X3, Cooperative, severe distress Abdomen: Normal bowel sounds, Soft Extremities: No clubbing, No cyanosis, No edema Skin: No rashes, No breakdown, No significant lesion Review of Systems Review of Systems wheezy, tight, no CP, no fevers Assessment and Plan Assessmemt and Plan Problems Medical Problems: (1) Status asthmaticus Status: Acute Problems: Comment Review of Relevant I have reviewed the following items tory (where applicable) has been applied. Labs Laboratory Tests Test 03/29/17 18:26 03/29/17 20:08 03/29/17 21:00 White Blood Count 10.8 x10^3/uL (4.0-11.0) Red Blood Count 5.05 x10^6/uL (4.30-5.70) Hemoglobin 15.2 g/dL (13.0-17.5) Hematocrit 44.6 % (39.0-53.0) Mean Corpuscular Volume 88 fL (79-100) Mean Corpuscular Hemoglobin 30 pg (25-35) Mean Corpuscular Hemoglobin Concent 34 g/dL (31-37) Red Cell Distribution Width 13.1 % (11.5-14.5) Platelet Count 161 x10^3/uL (140-400) Neutrophils (%) (Auto) 70 % (31-73) Lymphocytes (%) (Auto) 13 % (24-48) Monocytes (%) (Auto) 8 % (0-9) Eosinophils (%) (Auto) 9 % (0-3) Basophils (%) (Auto) 1 % (0-3) Neutrophils # (Auto) 7.5 x10^3uL (1.8-7.7) Lymphocytes # (Auto) 1.4 x10^3/uL (1.0-4.8) Monocytes # (Auto) 0.9 x10^3/uL (0.0-1.1) Eosinophils # (Auto) 0.9 x10^3/uL (0.0-0.7) Basophils # (Auto) 0.1 x10^3/uL (0.0-0.2) O2 Saturation 93 % (92-99) Arterial Blood pH 7.43 (7.35-7.45) Arterial Blood pCO2 at Patient Temp 37 mmHg (35-46) Arterial Blood pO2 at Patient Temp 67 mmHg (85-108) Arterial Blood HCO3 24 mmol/L (21-28) Arterial Blood Base Excess 0 mmol/L (-3-3) Oxyhemoglobin 92.4 % Methemoglobin 0.5 % (0.0-1.9) Carbon Monoxide, Quantitative 0.2 % (0.0-1.9) FiO2 28 Sodium Level 141 mmol/L (136-145) Potassium Level 3.7 mmol/L (3.5-5.1) Chloride Level 105 mmol/L (98-107) Carbon Dioxide Level 26 mmol/L (21-32) Anion Gap 10 (6-14) Blood Urea Nitrogen 13 mg/dL (8-26) Creatinine 0.8 mg/dL (0.7-1.3) Estimated GFR (Cockcroft-Gault) 118.8 BUN/Creatinine Ratio 16 (6-20) Glucose Level 100 mg/dL (70-99) Calcium Level 8.9 mg/dL (8.5-10.1) Total Bilirubin 0.5 mg/dL (0.2-1.0) Aspartate Amino Transf (AST/SGOT) 27 U/L (15-37) Alanine Aminotransferase (ALT/SGPT) 30 U/L (16-63) Alkaline Phosphatase 61 U/L (46-116) Total Protein 7.3 g/dL (6.4-8.2) Albumin 4.2 g/dL (3.4-5.0) Albumin/Globulin Ratio 1.4 (1.0-1.7) Medications Current Medications Albuterol/ Ipratropium (Duoneb) 3 ml 1X ONCE NEB Last administered on 18:36; Start 03/29/17 at 18:30; Stop 03/29/17 at 18:50; Status DC Methylprednisolone Sodium Succinate (SOLU-Medrol 125MG VIAL) 80 mg 1X ONCE IV Last administered on 03/29/17 19:12; Start 03/29/17 at 19:00; Stop 03/29/17 at 19: 01; Status DC Albuterol Sulfate (Ventolin Neb Soln) 10 mg 1X ONCE CONT NEB Last administered on 03/29/17 19:45; Start 03/29/17 at 20:00; Stop 03/29/17 at 20:01; Status DC Sodium Chloride 1,000 ml @ 100 mls/hr Q10H IV Last administered on 03/29/17 20 :31; Start 03/29/17 at 20:08; Stop 03/30/17 at 06:07; Status DC Magnesium Sulfate/ Dextrose 50 ml @ 25 mls/hr 1X ONCE IV Last administered on 03/29/17 20:31; Start 03/29/17 at 20:45; Stop 03/29/17 at 22:44; Status DC Sodium Chloride 1,000 ml @ 100 mls/hr Q10H IV Last administered on 03/30/17 16:48; Start 03/29/17 at 21:15; Stop 03/30/17 at 21:14; Status DC Albuterol/ Ipratropium (Duoneb) 3 ml Q4HRS NEB Last administered on 03/30/17 23:36; Start 03/30/17 at 00:00; Stop 03/30/17 at 23:59; Status DC Budesonide (Pulmicort) 0.5 mg 1X ONCE NEB Last administered on 03/29/17 22:00 ; Start 03/29/17 at 22:00; Stop 03/29/17 at 22:01; Status DC Budesonide (Pulmicort) 0.5 mg RTBID NEB Last administered on 03/30/17 21:01; Start 03/30/17 at 08:00 Montelukast Sodium (Singulair) 10 mg QHS PO Last administered on 03/30/17 19: 54; Start 03/29/17 at 22:00 Oxycodone/ Acetaminophen (Percocet 5/325) 1 tab PRN Q4HRS PRN PO PAIN Last administered on 03/30/17 11:46; Start 03/29/17 at 22:00 Morphine Sulfate 4 mg PRN Q2HR PRN IV PAIN Last administered on 03/30/17 19:56 ; Start 03/29/17 at 22:00 Nicotine (Nicoderm Cq 14mg) 1 patch PRN DAILY PRN TD SMOKING CESSATION; Start 03/29/17 at 22:00 Albuterol Sulfate (Ventolin Neb Soln) 2.5 mg PRN Q4HRS PRN NEB SHORTNESS OF BREATH; Start 03/29/17 at 22:00 Prednisone (Prednisone) 60 mg DAILY PO Last administered on 03/30/17 08:24; Start 03/30/17 at 09:00; Stop 03/30/17 at 11:35; Status DC Enoxaparin Sodium (Lovenox Per Pharmacy Prophylaxis Dosing) 1 each PRN DAILY PRN MC SEE COMMENTS; Start 03/29/17 at 22:00 Ceftriaxone Sodium 1 gm/ Sodium Chloride 50 ml @ 100 mls/hr Q24H IV Last administered on 03/30/17 21:19; Start 03/29/17 at 22:30 Doxycycline Hyclate (Vibra-Tab) 100 mg [id number] PO Last administered on 03/31/17 06:13; Start 03/30/17 at 07:00 Doxycycline Hyclate (Vibra-Tab) 100 mg 1X ONCE PO Last administered on 22:44; Start 03/29/17 at 22:30; Stop 03/29/17 at 22:31; Status DC Enoxaparin Sodium (Lovenox 40mg Syringe) 40 mg Q24H SQ ; Start 03/29/17 at 22:30 Acetaminophen (Tylenol) 500 mg PRN Q6HRS PRN PO MILD PAIN / TEMP; Start at 09:00 Ondansetron HCl (Zofran) 4 mg PRN Q6HRS PRN IV NAUSEA/VOMITING 1ST CHOICE; Start 03/30/17 at 09:00 Guaifenesin (Robitussin Dm) 10 ml PRN Q6HRS PRN PO COUGH 1ST CHOICE Last administered on 03/30/17 21:19; Start 03/30/17 at 09:00 Methylprednisolone Sodium Succinate (SOLU-Medrol 125MG VIAL) 125 mg Q8HRS IV Last administered on 03/31/17 06:13; Start 03/30/17 at 12:00 Iohexol (Omnipaque 300 Mg/ml) 75 ml 1X ONCE IV Last administered on 03/30/17 13:00; Start 03/30/17 at 13:00; Stop 03/30/17 at 13:01; Status DC Info (Do NOT chart on this entry -- for MONITORING) 1 each PRN DAILY PRN MC SEE COMMENTS; Start 03/30/17 at 13:00; Stop 04/01/17 at 12:59 Throat Lozenges (Cepacol Sore Throat Lozenge) 1 karan PRN Q2HRS PRN PO SORE THROAT Last administered on 03/31/17 06:33; Start 03/30/17 at 16:45 Albuterol/ Ipratropium (Duoneb) 3 ml Q4HRS NEB ; Start 03/31/17 at 08:00; Stop 03/31/17 at 08:00; Status DC Albuterol/ Ipratropium (Duoneb) 3 ml Q4HRS NEB Last administered on 03/31/17 04:20; Start 03/31/17 at 04:00 Active Scripts Active Reported Albuterol Sulfate Neb Soln (Albuterol Sulfate) 2.5 Mg/3 Ml Vial.neb 1 Vial NEB PRN Q4HRS Proair Hfa Inhaler (Albuterol Sulfate) 8.5 Gm Hfa.aer.ad 1 Puff INH PRN Q6HRS PRN Vitals/I & O Vital Sign - Last 24 Hours 03/30/17 03/30/17 03/30/17 03/30/17 09:00 10:00 11:00 12:00 Pulse 86 84 85 Resp 28 34 33 B/P (MAP) 127/67 (87) 127/56 (79) 119/54 (75) Pulse Ox 94 97 94 O2 Delivery NonRebreather Mask NonRebreather Mask NonRebreather Mask Non- Rebreather 03/30/17 03/30/17 03/30/17 03/30/17 12:00 12:04 13:00 14:00 Temp 97.7 97.7 Pulse 99 84 81 Resp 36 34 25 B/P (MAP) 154/79 (104) 130/67 (88) 126/58 (80) Pulse Ox 95 94 65 97 O2 Delivery NonRebreather Mask NonRebreather Mask NonRebreather Mask NonRebreather Mask O2 Flow Rate 12.0 03/30/17 03/30/17 03/30/17 03/30/17 16:00 16:00 16:25 17:00 Temp 97.6 97.6 Pulse 94 98 Resp 22 20 B/P (MAP) 106/52 (70) 102/53 (69) Pulse Ox 97 98 97 O2 Delivery Non-Rebreather NonRebreather Mask NonRebreather Mask NonRebreather Mask O2 Flow Rate 15.0 03/30/17 03/30/17 03/30/17 03/30/17 18:00 19:00 19:56 20:00 Temp 97.5 97.5 Pulse 99 90 91 Resp 20 24 16 25 B/P (MAP) 140/52 (81) 128/69 (88) 132/54 (80) Pulse Ox 98 99 97 98 O2 Delivery NonRebreather Mask NonRebreather Mask NonRebreather Mask NonRebreather Mask O2 Flow Rate 15.0 03/30/17 03/30/17 03/30/17 03/30/17 20:00 20:26 21:00 21:02 Pulse 94 Resp 21 B/P (MAP) 134/53 (80) Pulse Ox 98 99 98 O2 Delivery Non-Rebreather NonRebreather Mask NonRebreather Mask O2 Flow Rate 15.0 15.0 15.0 03/30/17 03/30/17 03/30/17 03/30/17 21:03 22:00 23:00 23:37 Temp 97.6 97.6 Pulse 106 91 Resp 30 24 B/P (MAP) 110/56 (74) 114/51 (72) Pulse Ox 98 98 100 99 O2 Delivery NonRebreather Mask NonRebreather Mask NonRebreather Mask NonRebreather Mask O2 Flow Rate 15.0 15.0 03/31/17 03/31/17 03/31/17 03/31/17 00:00 00:00 01:00 02:00 Pulse 108 90 92 Resp 28 25 26 B/P (MAP) 118/52 (74) 116/50 (72) 133/51 (78) Pulse Ox 97 99 99 O2 Delivery Non-Rebreather NonRebreather Mask NonRebreather Mask NonRebreather Mask O2 Flow Rate 15.0 15.0 15.0 03/31/17 03/31/17 03/31/17 03/31/17 03:00 04:00 04:00 04:21 Temp 97.7 97.7 Pulse 80 78 Resp 20 20 B/P (MAP) 122/55 (77) 121/53 (75) Pulse Ox 99 100 99 O2 Delivery NonRebreather Mask NonRebreather Mask Non-Rebreather NonRebreather Mask O2 Flow Rate 15.0 15.0 15.0 15.0 03/31/17 03/31/17 05:00 06:00 Pulse 82 82 Resp 18 17 B/P (MAP) 116/46 (69) 118/52 (74) Pulse Ox 99 99 O2 Delivery NonRebreather Mask NonRebreather Mask O2 Flow Rate 15.0 15.0 MAY NUNEZ MD Mar 31, 2017 08:51
--- NOTE | 2017-03-31 10:55 | PDOC ---
PULMONARY PROGRESS NOTES Subjective pt still soa Vitals Vital Signs Date Time Temp Pulse Resp B/P (MAP) Pulse Ox O2 Delivery O2 Flow Rate FiO2 03/31/17 08:52 98 NonRebreather Mask 15.0 03/31/17 06:00 82 17 118/52 (74) 03/31/17 03:00 97.7 97.7 ROS: No Nausea, No Chest Pain, No Abdominal Pain, No Increase Cough General: Alert Lungs: Wheezing Cardiovascular: S1, S2 Abdomen: Soft Neuro Exam: Alert Extremities: No Edema Skin: Warm Labs Laboratory Tests Test 03/29/17 18:26 03/29/17 20:08 03/29/17 21:00 White Blood Count 10.8 x10^3/uL (4.0-11.0) Red Blood Count 5.05 x10^6/uL (4.30-5.70) Hemoglobin 15.2 g/dL (13.0-17.5) Hematocrit 44.6 % (39.0-53.0) Mean Corpuscular Volume 88 fL (79-100) Mean Corpuscular Hemoglobin 30 pg (25-35) Mean Corpuscular Hemoglobin Concent 34 g/dL (31-37) Red Cell Distribution Width 13.1 % (11.5-14.5) Platelet Count 161 x10^3/uL (140-400) Neutrophils (%) (Auto) 70 % (31-73) Lymphocytes (%) (Auto) 13 % (24-48) Monocytes (%) (Auto) 8 % (0-9) Eosinophils (%) (Auto) 9 % (0-3) Basophils (%) (Auto) 1 % (0-3) Neutrophils # (Auto) 7.5 x10^3uL (1.8-7.7) Lymphocytes # (Auto) 1.4 x10^3/uL (1.0-4.8) Monocytes # (Auto) 0.9 x10^3/uL (0.0-1.1) Eosinophils # (Auto) 0.9 x10^3/uL (0.0-0.7) Basophils # (Auto) 0.1 x10^3/uL (0.0-0.2) O2 Saturation 93 % (92-99) Arterial Blood pH 7.43 (7.35-7.45) Arterial Blood pCO2 at Patient Temp 37 mmHg (35-46) Arterial Blood pO2 at Patient Temp 67 mmHg (85-108) Arterial Blood HCO3 24 mmol/L (21-28) Arterial Blood Base Excess 0 mmol/L (-3-3) Oxyhemoglobin 92.4 % Methemoglobin 0.5 % (0.0-1.9) Carbon Monoxide, Quantitative 0.2 % (0.0-1.9) FiO2 28 Sodium Level 141 mmol/L (136-145) Potassium Level 3.7 mmol/L (3.5-5.1) Chloride Level 105 mmol/L (98-107) Carbon Dioxide Level 26 mmol/L (21-32) Anion Gap 10 (6-14) Blood Urea Nitrogen 13 mg/dL (8-26) Creatinine 0.8 mg/dL (0.7-1.3) Estimated GFR (Cockcroft-Gault) 118.8 BUN/Creatinine Ratio 16 (6-20) Glucose Level 100 mg/dL (70-99) Calcium Level 8.9 mg/dL (8.5-10.1) Total Bilirubin 0.5 mg/dL (0.2-1.0) Aspartate Amino Transf (AST/SGOT) 27 U/L (15-37) Alanine Aminotransferase (ALT/SGPT) 30 U/L (16-63) Alkaline Phosphatase 61 U/L (46-116) Total Protein 7.3 g/dL (6.4-8.2) Albumin 4.2 g/dL (3.4-5.0) Albumin/Globulin Ratio 1.4 (1.0-1.7) Medications Active Scripts Medications Dose Route/Sig Max Daily Dose Days Date Category Albuterol Sulfate Neb Soln (Albuterol Sulfate) 2.5 Mg/3 Ml Vial.neb 1 Vial NEB PRN Q4HRS 03/29/17 Reported Proair Hfa Inhaler (Albuterol Sulfate) 8.5 Gm Hfa.aer.ad 1 Puff INH PRN Q6HRS PRN 03/29/17 Reported Impression . 1. Status asthmaticus 2. Acute Resp Failure 3. Hemoptysis 4. Acute bronchitis 5. Abnormal CT of chest differential includes infections, vasculitis Plan . continue steroids 02 nebs will need follow up with pearl peller as outpt pt denies inhalation of any toxic fumes no use of illicit drugs SAMANTHA JAIMES MD Mar 31, 2017 10:55
--- NOTE | 2017-03-31 14:08 | CARD ---
APPROVED REPORT EXAM: Two-dimensional and M-mode echocardiogram with Doppler and color Doppler. Other Information Quality : Good INDICATION CVA/TIA R/O Shunt Echo Enhancing Agent Agent/Amount Used: Agitated Saline 8mL 2D DIMENSIONS RVDd3.3 (2.9-3.5cm)Left Atrium(2D)2.5 (1.6-4.0cm) IVSd0.9 (0.7-1.1cm)Aortic Root(2D)2.6 (2.0-3.7cm) LVDd3.8 (3.9-5.9cm)LVOT Diameter2.1 (1.8-2.4cm) PWd1.1 (0.7-1.1cm)LVDs2.9 (2.5-4.0cm) FS (%) 30.0 %SV27.0 ml LVEF(%)60.0 (>50%) Aortic Valve AoV Peak Carlos.132.2cm/sAoV VTI21.8cm AO Peak GR.7.0mmHgLVOT VTI 25.10cm AO Mean GR.4mmHgAVA (VTI)4.00cm2 Mitral Valve MV E Nziovjbx966.8cm/sMV DECEL [id number] MV A Sckffkdm53.7cm/sE/A Ratio1.7 TDI Lateral E' P. V16.28cm/sMedial E' P. V11.20cm/s E/Lateral E'7.9E/Medial E'11.4 Tricuspid Valve TR P. Jcagjbof716ot/sRAP [id number] TR Peak [id number] LEFT VENTRICLE The left ventricle is normal size. There is normal left ventricular wall thickness. The left ventricu lar systolic function is normal and the ejection fraction is within normal range. The Ejection Fracti on is 55-60%. There is grossly normal LV segmental wall motion. Suboptimal images. Transmitral Dopple r flow pattern is normal for age. RIGHT VENTRICLE The right ventricle is normal size. The right ventricular systolic function is normal. ATRIA The left atrium size is normal. The right atrium size is normal. The interatrial septum is intact wit h no evidence for an atrial septal defect or patent foramen ovale as noted on 2-D or Doppler imaging. Injection of bubbles documented no interatrial shunt on limited images due to respiratory motion. AORTIC VALVE The aortic valve is normal in structure and function. Doppler and Color Flow revealed no significant aortic regurgitation. There is no significant aortic valvular stenosis. MITRAL VALVE The mitral valve is normal in structure and function. There is no evidence of mitral valve prolapse. There is no mitral valve stenosis. Doppler and Color Flow revealed no mitral valve regurgitation note d. TRICUSPID VALVE The tricuspid valve is normal in structure and function. Doppler and Color Flow revealed physiologica l tricuspid regurgitation. The PA pressure was estimated at 36 mmHg. There is no tricuspid valve sten osis. PULMONIC VALVE Doppler and Color Flow revealed no significant pulmonic valvular regurgitation. There is no pulmonic valvular stenosis. GREAT VESSELS The aortic root is normal in size. The ascending aorta is normal in size. The IVC is normal in size a nd collapses >50% with inspiration. PERICARDIAL EFFUSION There is no evidence of significant pericardial effusion. Critical Notification Critical Value: No <Conclusion> The left ventricular systolic function is normal and the ejection fraction is within normal range. Th e Ejection Fraction is 55-60%. There is grossly normal LV segmental wall motion. Suboptimal images. The interatrial septum is intact with no evidence for an atrial septal defect or patent foramen ovale as noted on 2-D or Doppler imaging. Injection of bubbles documented no interatrial shunt on limited images due to respiratory motion. Doppler and Color Flow revealed physiological tricuspid regurgitation. The PA pressure was estimated at 36 mmHg.
[2017-03-31] MEDS: MONTELUKAST SODIUM 10 MG TABLET. PO SCH (20:29)
[2017-03-31] MEDS: ENOXAPARIN 40 MG/0.4 ML SYRINGE. SQ SCH (22:14)
[2017-04-01] VITALS (14 sets, daily range): BP systolic 105–166; BP diastolic 45–70
[2017-04-01] MEDS: IPRATRPIUM/ALBUTEROL 0.5/2.5MG 3 ML NEBU. NEB SCH ×6 (03:23→23:59)
[2017-04-01] MEDS: methylPREDNISolone SOD SUCC PF 125 MG/2 ML VIAL. IV SCH ×3 (06:04→22:16)
[2017-04-01] MEDS: DOXYCYCLINE HYCLATE 100 MG TABLET PO SCH ×2 (07:38→16:56)
[2017-04-01] MEDS: BENZOCAINE/MENTHOL LOZENGE. PO PRN ×2 (07:38→22:54)
[2017-04-01] MEDS: BUDESONIDE 0.5 MG/2 ML NEBU. NEB SCH ×2 (08:24→19:38)
--- NOTE | 2017-04-01 10:12 | PDOC ---
PULMONARY PROGRESS NOTES Subjective LESS SOA NO INCREASE COUGH Vitals Vital Signs Date Time Temp Pulse Resp B/P (MAP) Pulse Ox O2 Delivery O2 Flow Rate FiO2 04/01/17 10:00 83 20 150/60 (90) 93 Nasal Cannula 4.0 04/01/17 08:00 97.9 97.9 ROS: No Nausea, No Chest Pain, No Abdominal Pain, No Increase Cough General: Alert Lungs: Wheezing Cardiovascular: S1, S2 Abdomen: Soft Neuro Exam: Alert Extremities: No Edema Skin: Warm Labs Laboratory Tests Test 03/30/17 13:55 03/31/17 09:35 Immunoglobulin E 493 IU/mL (0-100) Erythrocyte Sedimentation Rate 8 (0-15) Medications Active Scripts Medications Dose Route/Sig Max Daily Dose Days Date Category Albuterol Sulfate Neb Soln (Albuterol Sulfate) 2.5 Mg/3 Ml Vial.neb 1 Vial NEB PRN Q4HRS 03/29/17 Reported Proair Hfa Inhaler (Albuterol Sulfate) 8.5 Gm Hfa.aer.ad 1 Puff INH PRN Q6HRS PRN 03/29/17 Reported Impression . 1. Status asthmaticus 2. Acute Resp Failure 3. Hemoptysis 4. Acute bronchitis 5. Abnormal CT of chest differential includes infections, vasculitis Plan . D/W pt will proceed with bronch in am, prior to placing him on intermission coordinator pred, rule out atypical infection fungal/non mycobacterium continue steroids 02 nebs will need follow up with fiscal economist as outpt pt denies inhalation of any toxic fumes no use of illicit drugs ok to transfer out of ICU SAMANTHA JAIMES MD Apr 01, 2017 10:12
--- NOTE | 2017-04-01 11:49 | PDOC ---
PROGRESS NOTES Chief Complaint Chief Complaint Status asthmaticus acute hypoxic respiratory failure Sinus tachy sec to above Acute bronchitis tobacco use, r/o Churg tjusss with eospinophilia, CT findings HIgh IgE History of Present Illness History of Present Illness Seen in ICU Up in chair Wheezing better SOme tightness still Feels like getting boated from steroids Dw Pulmo - given CT findings and eosiniphilia, Megan wilkins is in difftl COunselled on his smoking Ig E elevated 400s ESR normal at 8 PLAn: Check p-ANCA - should be elevated in Adriane Wilkins or now known as MPA Bronch plans tomAM by pulmo NPO post mN ok to t./o ICU COnt steroids 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 Vitals Vitals Vital Signs Date Time Temp Pulse Resp B/P (MAP) Pulse Ox O2 Delivery O2 Flow Rate FiO2 04/01/17 10:00 83 20 150/60 (90) 93 Nasal Cannula 4.0 04/01/17 08:00 97.9 97.9 Physical Exam General: Alert, Oriented X3, Cooperative, severe distress Lungs: Wheezing Abdomen: Normal bowel sounds, Soft Extremities: No clubbing, No cyanosis, No edema Skin: No rashes, No breakdown, No significant lesion Review of Systems Review of Systems tight, bloated Assessment and Plan Assessmemt and Plan Problems Medical Problems: (1) Status asthmaticus Status: Acute Problems: Comment Review of Relevant I have reviewed the following items tory (where applicable) has been applied. Labs Laboratory Tests Test 03/30/17 13:55 03/31/17 09:35 Immunoglobulin E 493 IU/mL (0-100) Erythrocyte Sedimentation Rate 8 (0-15) Medications Current Medications Albuterol/ Ipratropium (Duoneb) 3 ml 1X ONCE NEB Last administered on 18:36; Start 03/29/17 at 18:30; Stop 03/29/17 at 18:50; Status DC Methylprednisolone Sodium Succinate (SOLU-Medrol 125MG VIAL) 80 mg 1X ONCE IV Last administered on 03/29/17 19:12; Start 03/29/17 at 19:00; Stop 03/29/17 at 19: 01; Status DC Albuterol Sulfate (Ventolin Neb Soln) 10 mg 1X ONCE CONT NEB Last administered on 03/29/17 19:45; Start 03/29/17 at 20:00; Stop 03/29/17 at 20:01; Status DC Sodium Chloride 1,000 ml @ 100 mls/hr Q10H IV Last administered on 03/29/17 20 :31; Start 03/29/17 at 20:08; Stop 03/30/17 at 06:07; Status DC Magnesium Sulfate/ Dextrose 50 ml @ 25 mls/hr 1X ONCE IV Last administered on 03/29/17 20:31; Start 03/29/17 at 20:45; Stop 03/29/17 at 22:44; Status DC Sodium Chloride 1,000 ml @ 100 mls/hr Q10H IV Last administered on 03/30/17 16:48; Start 03/29/17 at 21:15; Stop 03/30/17 at 21:14; Status DC Albuterol/ Ipratropium (Duoneb) 3 ml Q4HRS NEB Last administered on 03/30/17 23:36; Start 03/30/17 at 00:00; Stop 03/30/17 at 23:59; Status DC Budesonide (Pulmicort) 0.5 mg 1X ONCE NEB Last administered on 03/29/17 22:00 ; Start 03/29/17 at 22:00; Stop 03/29/17 at 22:01; Status DC Budesonide (Pulmicort) 0.5 mg RTBID NEB Last administered on 04/01/17 08:24; Start 03/30/17 at 08:00 Montelukast Sodium (Singulair) 10 mg QHS PO Last administered on 03/31/17 20: 29; Start 03/29/17 at 22:00 Oxycodone/ Acetaminophen (Percocet 5/325) 1 tab PRN Q4HRS PRN PO PAIN Last administered on 03/30/17 11:46; Start 03/29/17 at 22:00 Morphine Sulfate 4 mg PRN Q2HR PRN IV PAIN Last administered on 03/30/17 19:56 ; Start 03/29/17 at 22:00 Nicotine (Nicoderm Cq 14mg) 1 patch PRN DAILY PRN TD SMOKING CESSATION; Start 03/29/17 at 22:00 Albuterol Sulfate (Ventolin Neb Soln) 2.5 mg PRN Q4HRS PRN NEB SHORTNESS OF BREATH; Start 03/29/17 at 22:00 Prednisone (Prednisone) 60 mg DAILY PO Last administered on 03/30/17 08:24; Start 03/30/17 at 09:00; Stop 03/30/17 at 11:35; Status DC Enoxaparin Sodium (Lovenox Per Pharmacy Prophylaxis Dosing) 1 each PRN DAILY PRN MC SEE COMMENTS; Start 03/29/17 at 22:00 Ceftriaxone Sodium 1 gm/ Sodium Chloride 50 ml @ 100 mls/hr Q24H IV Last administered on 03/31/17 22:15; Start 03/29/17 at 22:30 Doxycycline Hyclate (Vibra-Tab) 100 mg [id number] PO Last administered on 04/01/17 07:38; Start 03/30/17 at 07:00 Doxycycline Hyclate (Vibra-Tab) 100 mg 1X ONCE PO Last administered on 22:44; Start 03/29/17 at 22:30; Stop 03/29/17 at 22:31; Status DC Enoxaparin Sodium (Lovenox 40mg Syringe) 40 mg Q24H SQ Last administered on 22:14; Start 03/29/17 at 22:30 Acetaminophen (Tylenol) 500 mg PRN Q6HRS PRN PO MILD PAIN / TEMP; Start at 09:00 Ondansetron HCl (Zofran) 4 mg PRN Q6HRS PRN IV NAUSEA/VOMITING 1ST CHOICE; Start 03/30/17 at 09:00 Guaifenesin (Robitussin Dm) 10 ml PRN Q6HRS PRN PO COUGH 1ST CHOICE Last administered on 03/31/17 20:31; Start 03/30/17 at 09:00 Methylprednisolone Sodium Succinate (SOLU-Medrol 125MG VIAL) 125 mg Q8HRS IV Last administered on 04/01/17 06:04; Start 03/30/17 at 12:00 Iohexol (Omnipaque 300 Mg/ml) 75 ml 1X ONCE IV Last administered on 03/30/17 13:00; Start 03/30/17 at 13:00; Stop 03/30/17 at 13:01; Status DC Info (Do NOT chart on this entry -- for MONITORING) 1 each PRN DAILY PRN MC SEE COMMENTS; Start 03/30/17 at 13:00; Stop 04/01/17 at 12:59 Throat Lozenges (Cepacol Sore Throat Lozenge) 1 karan PRN Q2HRS PRN PO SORE THROAT Last administered on 04/01/17 07:38; Start 03/30/17 at 16:45 Albuterol/ Ipratropium (Duoneb) 3 ml Q4HRS NEB ; Start 03/31/17 at 08:00; Stop 03/31/17 at 08:00; Status DC Albuterol/ Ipratropium (Duoneb) 3 ml Q4HRS NEB Last administered on 04/01/17 08:24; Start 03/31/17 at 04:00 Active Scripts Active Reported Albuterol Sulfate Neb Soln (Albuterol Sulfate) 2.5 Mg/3 Ml Vial.neb 1 Vial NEB PRN Q4HRS Proair Hfa Inhaler (Albuterol Sulfate) 8.5 Gm Hfa.aer.ad 1 Puff INH PRN Q6HRS PRN Vitals/I & O Vital Sign - Last 24 Hours 03/31/17 03/31/17 03/31/17 03/31/17 12:00 12:28 13:00 14:00 Temp 98.2 98.2 Pulse 96 112 Resp 24 22 B/P (MAP) 119/48 (71) 115/52 (73) Pulse Ox 94 92 97 O2 Delivery Non-Rebreather Venturi Mask Venturi Mask Venturi Mask O2 Flow Rate 12.0 12.0 15.0 15.0 03/31/17 03/31/17 03/31/17 03/31/17 15:16 16:00 16:08 16:19 Pulse 84 98 Resp 20 18 B/P (MAP) 143/73 (96) 137/55 (82) Pulse Ox 100 96 95 O2 Delivery Room Air Venturi Mask Venturi Mask Venturi Mask O2 Flow Rate 15.0 12.0 03/31/17 03/31/17 03/31/17 03/31/17 17:00 18:00 19:00 19:26 Pulse 114 110 108 Resp 20 18 16 B/P (MAP) 136/47 (76) 112/53 (72) 149/54 (85) Pulse Ox 95 92 97 95 O2 Delivery Venturi Mask Venturi Mask Venturi Mask Venturi Mask O2 Flow Rate 12.0 03/31/17 03/31/17 03/31/17 03/31/17 19:31 20:00 20:00 21:00 Temp 98.0 98.0 Pulse 106 99 Resp 17 B/P (MAP) 149/56 (87) 151/58 (89) Pulse Ox 95 96 91 O2 Delivery Venturi Mask Venturi Mask Venturi Mask Room Air O2 Flow Rate 12.0 15.0 03/31/17 03/31/17 03/31/17 03/31/17 22:00 23:00 23:03 23:59 Pulse 103 118 Resp 17 B/P (MAP) 132/55 (80) 143/55 (84) Pulse Ox 93 91 95 O2 Delivery Venturi Mask Venturi Mask Venturi Mask Venturi Mask O2 Flow Rate 6.0 6.0 6.0 6.0 03/31/17 04/01/17 04/01/17 04/01/17 23:59 01:00 02:00 03:00 Pulse 93 91 91 91 Resp 18 18 18 B/P (MAP) 128/53 (78) 136/58 (84) 136/58 (84) 130/59 (82) Pulse Ox 93 92 92 92 O2 Delivery Venturi Mask Venturi Mask Venturi Mask Venturi Mask O2 Flow Rate 6.0 6.0 6.0 6.0 04/01/17 04/01/17 04/01/17 04/01/17 03:23 04:00 04:00 05:00 Temp 98.0 98.0 Pulse 77 74 Resp 21 B/P (MAP) 148/55 (86) 133/48 (76) Pulse Ox 93 92 93 O2 Delivery Venturi Mask Venturi Mask Venturi Mask Venturi Mask O2 Flow Rate 6.0 6.0 6.0 6.0 04/01/17 04/01/17 04/01/17 04/01/17 06:00 07:00 08:00 08:00 Temp 97.9 97.9 Pulse 71 84 73 Resp 17 25 27 B/P (MAP) 136/70 (92) 105/49 (67) 115/51 (72) Pulse Ox 93 90 93 O2 Delivery Venturi Mask Venturi Mask Venturi Mask Venturi Mask O2 Flow Rate 6.0 6.0 6.0 6.0 04/01/17 04/01/17 04/01/17 08:20 09:00 10:00 Pulse 81 83 Resp 20 20 B/P (MAP) 140/70 (93) 150/60 (90) Pulse Ox 93 93 93 O2 Delivery Venturi Mask Nasal Cannula Nasal Cannula O2 Flow Rate 6.0 4.0 4.0 Intake and Output 04/01/17 04/01/17 04/02/17 15:00 23:00 07:00 Intake Total 175 ml Balance 175 ml MAY NUNEZ MD Apr 01, 2017 11:49
[2017-04-01] MEDS: ENOXAPARIN 40 MG/0.4 ML SYRINGE. SQ SCH (22:17)
[2017-04-01] MEDS: MONTELUKAST SODIUM 10 MG TABLET. PO SCH (22:17)
[2017-04-01] MEDS: MORPHINE SULFATE 4 MG/ML DISP.SYRIN. IV PRN (22:34)
[2017-04-02 03:10] VITALS: BP 119/50
[2017-04-02] MEDS: IPRATRPIUM/ALBUTEROL 0.5/2.5MG 3 ML NEBU. NEB SCH ×6 (03:54→23:16)
[2017-04-02] MEDS: methylPREDNISolone SOD SUCC PF 125 MG/2 ML VIAL. IV SCH ×3 (05:17→22:09)
[2017-04-02] MEDS: DOXYCYCLINE HYCLATE 100 MG TABLET PO SCH ×2 (05:17→17:37)
[2017-04-02 07:53] VITALS: BP 149/78
[2017-04-02] MEDS: BUDESONIDE 0.5 MG/2 ML NEBU. NEB SCH ×2 (08:04→19:29)
[2017-04-02] MEDS: MORPHINE SULFATE 4 MG/ML DISP.SYRIN. IV PRN (09:08)
[2017-04-02 11:42] VITALS: BP 117/59
[2017-04-02] MEDS ORDERED: IV RINGERS,LACTATED 1000ML 1,000 ML IV SCH (13:02)
[2017-04-02] MEDS ORDERED: ONDANSETRON PF 4 MG/2 ML VIAL. IV PRN (13:15)
[2017-04-02] MEDS ORDERED: MORPHINE SULFATE 2 MG/ML DISP.SYRIN. IV PRN (13:15)
[2017-04-02] MEDS ORDERED: LIDOCAINE 1% 1 ML SYRINGE. ID PRN (13:15)
[2017-04-02] MEDS ORDERED: HYDROmorphone 2 MG/ML VIAL IV PRN (13:15)
[2017-04-02] MEDS ORDERED: fentaNYL PF VIAL 100 MCG/2 ML VIAL IV PRN ×2 (13:15)
[2017-04-02] MEDS ORDERED: PROCHLORPERAZINE 10 MG/2 ML VIAL. IV PRN (13:15)
[2017-04-02] MEDS: IV RINGERS,LACTATED 1000ML 1,000 ML IV SCH (13:30)
[2017-04-02] MEDS ORDERED: MEPERIDINE PF 25 MG/ML VIAL. ONE (14:26)
[2017-04-02] MEDS ORDERED: PROPOFOL 20 ML IV ONE ×2 (14:26)
--- NOTE | 2017-04-02 15:27 | PDOC ---
PULMONARY PROGRESS NOTES Subjective LESS SOA NO INCREASE COUGH Vitals Vital Signs Date Time Temp Pulse Resp B/P (MAP) Pulse Ox O2 Delivery O2 Flow Rate FiO2 04/02/17 15:15 98.6 88 18 121/54 91 Nasal Cannula 4.0 98.6 ROS: No Nausea, No Chest Pain, No Abdominal Pain, No Increase Cough General: Alert Lungs: Wheezing Cardiovascular: S1, S2 Abdomen: Soft Neuro Exam: Alert Extremities: No Edema Skin: Warm Medications Active Scripts Medications Dose Route/Sig Max Daily Dose Days Date Category Albuterol Sulfate Neb Soln (Albuterol Sulfate) 2.5 Mg/3 Ml Vial.neb 1 Vial NEB PRN Q4HRS 03/29/17 Reported Proair Hfa Inhaler (Albuterol Sulfate) 8.5 Gm Hfa.aer.ad 1 Puff INH PRN Q6HRS PRN 03/29/17 Reported Impression . 1. Status asthmaticus 2. Acute Resp Failure 3. Hemoptysis 4. Acute bronchitis 5. Abnormal CT of chest differential includes infections, vasculitis Plan . D/W pt will proceed with bronch TODAY, prior to placing him on detention pred, rule out atypical infection fungal/non mycobacterium continue steroids 02 nebs will need follow up with research librarian as outpt pt denies inhalation of any toxic fumes no use of illicit drugs DECREASE 02 SAMANTHA JAIMES MD Apr 02, 2017 15:27
[2017-04-02 16:00] VITALS: BP 111/49
[2017-04-02] MEDS: guaiFENesin DM 200MG/20MG 10 ML SYRUP PO PRN (17:36)
--- NOTE | 2017-04-02 19:22 | PDOC4 ---
PROCEDURE Procedure BRONCH DICTATED NO ENDO LESION THICK MUCUS IN AIRWAYS BAL PERFUMED SAMANTHA JAIMES MD Apr 02, 2017 19:22
[2017-04-02 19:51] VITALS: BP 130/67
--- NOTE | 2017-04-02 20:15 | OP ---
DATE OF SURGERY: 04/02/2017 ATTENDING PHYSICIAN: Eloisa Mojica MD PROCEDURE: Bronchoscopy, bronchoalveolar lavage. INDICATIONS: The patient presented with acute respiratory failure, bilateral alveolar type of infiltrates best seen on CT, undergoing diagnostic bronchoscopy, rule out possibility of an atypical infection versus vasculitis. Risks, benefits and alternatives were reviewed with the patient. SEDATION: Please see the anesthesia notes. DESCRIPTION OF PROCEDURE: A timeout was performed prior to sedating the patient. Vital signs and O2 saturation were maintained within normal limits throughout the procedure. The bronchoscope was passed through the left naris. The vocal cords were identified moving bilaterally. The vocal cords were then anesthetized with a total of 5 mL of 4% lidocaine. Bronchoscope was passed through the vocal cords into the proximal trachea, which was normal. The distal trachea was likewise normal. The right and left segments and subsegments were visualized. There was thick mucus coating, the lower airways, right greater than left. A picture was obtained. The mucus secretions were cleared away. The scope was then wedged into the right middle lobe and lavage was performed, infusion of 90 mL of saline with approximately 60 mL return. The return was cloudy and mixed in with some mucus. FINDINGS: 1. Normal vocal cords. 2. Coating of the airways with thick white secretions. 3. No endobronchial lesion. PLAN: We will await the BAL results. The patient tolerated procedure well with no immediate complications. SAMANTHA JAIMES MD DR: SUMMER/chioma JOB#: [id number] / [id number]
[2017-04-02] MEDS: MONTELUKAST SODIUM 10 MG TABLET. PO SCH (22:07)
[2017-04-02] MEDS: ENOXAPARIN 40 MG/0.4 ML SYRINGE. SQ SCH (22:24)
[2017-04-02] MEDS: oxyCODONE/APAP 5/325 1 TAB TABLET PO PRN (22:24)
[2017-04-03] MEDS: BENZOCAINE/MENTHOL LOZENGE. PO PRN ×2 (00:02→21:02)
[2017-04-03] MEDS: IV RINGERS,LACTATED 1000ML 1,000 ML IV SCH ×2 (02:50→16:10)
[2017-04-03 03:00] VITALS: BP 109/56
[2017-04-03] MEDS: IPRATRPIUM/ALBUTEROL 0.5/2.5MG 3 ML NEBU. NEB SCH ×6 (03:20→23:07)
[2017-04-03] MEDS: DOXYCYCLINE HYCLATE 100 MG TABLET PO SCH ×2 (06:04→17:47)
[2017-04-03] MEDS: methylPREDNISolone SOD SUCC PF 125 MG/2 ML VIAL. IV SCH ×3 (06:05→21:02)
[2017-04-03 07:40] VITALS: BP 121/60
[2017-04-03] MEDS: BUDESONIDE 0.5 MG/2 ML NEBU. NEB SCH ×2 (08:02→19:23)
--- NOTE | 2017-04-03 08:38 | PDOC ---
PROGRESS NOTES Chief Complaint Chief Complaint Plz note: re-entered note (disappeared). pt seen yesterday afternoon post bronch CC: Status asthmaticus ASSESSMENT AND PLAN: 1. Asthma: improving. cont steroids, nebs, suppl O2. suspicion for (viral) URI triggering acute attack 2. Eosinophilia: r/o Churg Raman. IGE high, serologies pending 3. SVT: related to hypoxia/albuterol. improving 4. Tobaccoism: discouraged History of Present Illness History of Present Illness still feels somehat SOB, debbie post bronch. Vitals Vitals Vital Signs Date Time Temp Pulse Resp B/P (MAP) Pulse Ox O2 Delivery O2 Flow Rate FiO2 04/03/17 08:08 98 Nasal Cannula 4.0 04/03/17 03:00 97.7 70 18 109/56 (73) 97.7 Physical Exam General: Alert, Oriented X3, Cooperative, No acute distress Heart: Regular rate Lungs: Wheezing, Crackles Abdomen: Normal bowel sounds, Soft, No tenderness Extremities: No edema Skin: No rashes, No breakdown, No significant lesion FRIEDA JACKSON MD Apr 03, 2017 08:38
--- NOTE | 2017-04-03 09:15 | PDOC ---
PULMONARY PROGRESS NOTES Subjective LESS SOA NO INCREASE COUGH Vitals Vital Signs Date Time Temp Pulse Resp B/P (MAP) Pulse Ox O2 Delivery O2 Flow Rate FiO2 04/03/17 08:08 98 Nasal Cannula 4.0 04/03/17 07:40 97.6 67 18 121/60 (80) 97.6 ROS: No Nausea, No Chest Pain, No Abdominal Pain, No Increase Cough General: Alert Lungs: Wheezing, Crackles Cardiovascular: S1, S2 Abdomen: Soft Neuro Exam: Alert Extremities: No Edema Skin: Warm Labs Laboratory Tests Test 04/01/17 09:30 Rheumatoid Factor 12.4 IU/mL (0.0-13.9) Medications Active Scripts Medications Dose Route/Sig Max Daily Dose Days Date Category Albuterol Sulfate Neb Soln (Albuterol Sulfate) 2.5 Mg/3 Ml Vial.neb 1 Vial NEB PRN Q4HRS 03/29/17 Reported Proair Hfa Inhaler (Albuterol Sulfate) 8.5 Gm Hfa.aer.ad 1 Puff INH PRN Q6HRS PRN 03/29/17 Reported Impression . 1. Status asthmaticus 2. Acute Resp Failure 3. Hemoptysis 4. Acute bronchitis 5. Abnormal CT of chest differential includes infections, vasculitis Plan . 6 min walk home in am on prednisone/Augmentin/MDI SAMANTHA JAIMES MD Apr 03, 2017 09:15
[2017-04-03 11:30] VITALS: BP 124/65
--- NOTE | 2017-04-03 13:34 | PDOC ---
PROGRESS NOTES Chief Complaint Chief Complaint Status asthmaticus ASSESSMENT AND PLAN: 1. Asthma: improving. cont steroids, nebs, suppl O2. suspicion for (viral) URI triggering acute attack 2. Eosinophilia: r/o Churg Raman. IGE high, serologies pending 3. SVT: related to hypoxia/albuterol. improving 4. Tobaccoism: discouraged 5. Dispo: anticipate D/C in AM History of Present Illness History of Present Illness better, no new issues Vitals Vitals Vital Signs Date Time Temp Pulse Resp B/P (MAP) Pulse Ox O2 Delivery O2 Flow Rate FiO2 04/03/17 12:08 95 Nasal Cannula 4.0 04/03/17 11:30 98.1 63 20 124/65 (84) 98.1 Physical Exam General: Alert, Oriented X3, Cooperative, No acute distress Heart: Regular rate Lungs: Clear Abdomen: Normal bowel sounds, Soft, No tenderness Extremities: No edema Skin: No rashes Labs LABS Laboratory Tests Test 04/02/17 15:00 Miscellaneous Test Comment (.) FRIEDA JACKSON MD Apr 03, 2017 13:34
[2017-04-03 14:56] VITALS: BP 113/56
[2017-04-03] MEDS: oxyCODONE/APAP 5/325 1 TAB TABLET PO PRN ×2 (15:04→21:01)
[2017-04-03 16:17] LABS: C ANCA <1:20 titer (Neg:<1:20)
[2017-04-03 19:00] VITALS: BP 124/63
[2017-04-03] MEDS: MONTELUKAST SODIUM 10 MG TABLET. PO SCH (21:02)
[2017-04-03] MEDS: ENOXAPARIN 40 MG/0.4 ML SYRINGE. SQ SCH (22:30)
[2017-04-04 03:30] VITALS: BP 122/55
[2017-04-04] MEDS: IPRATRPIUM/ALBUTEROL 0.5/2.5MG 3 ML NEBU. NEB SCH ×3 (03:33→12:27)
[2017-04-04] MEDS: IV RINGERS,LACTATED 1000ML 1,000 ML IV SCH (05:30)
[2017-04-04] MEDS: methylPREDNISolone SOD SUCC PF 125 MG/2 ML VIAL. IV SCH ×2 (06:08→14:00)
[2017-04-04] MEDS: DOXYCYCLINE HYCLATE 100 MG TABLET PO SCH (06:09)
[2017-04-04 07:00] VITALS: BP 115/56
[2017-04-04] MEDS: BUDESONIDE 0.5 MG/2 ML NEBU. NEB SCH (07:24)
[2017-04-04] MEDS ORDERED: PRED-220 PO (10:34)
[2017-04-04] MEDS ORDERED: DOXY100T PO (10:34)
[2017-04-04 11:00] VITALS: BP 113/64
[2017-04-04] MEDS ORDERED: MONT10TA9 PO (11:48)
[2017-04-04] MEDS ORDERED: FLUT1DIS5 IH (11:48)
[2017-04-04] MEDS ORDERED: ALBU1.25 NEB (11:48)
[2017-04-04] MEDS ORDERED: PROAIR HFA8.5 GM INH (11:48)
--- NOTE | 2017-04-04 13:07 | PDOC ---
PULMONARY PROGRESS NOTES Subjective LESS SOA NO INCREASE COUGH Vitals Vital Signs Date Time Temp Pulse Resp B/P (MAP) Pulse Ox O2 Delivery O2 Flow Rate FiO2 04/04/17 12:28 93 Nasal Cannula 2.0 04/04/17 11:00 98.3 65 14 113/64 (80) 98.3 ROS: No Nausea, No Chest Pain, No Abdominal Pain, No Increase Cough General: Alert Lungs: Clear Cardiovascular: S1, S2 Abdomen: Soft Neuro Exam: Alert Extremities: No Edema Skin: Warm Labs Laboratory Tests Test 04/02/17 15:00 Miscellaneous Test Comment (.) Medications Active Scripts Medications Dose Route/Sig Max Daily Dose Days Date Category Albuterol Sulfate Neb Soln (Albuterol Sulfate) 2.5 Mg/3 Ml Vial.neb 1 Vial NEB PRN Q4HRS 03/29/17 Reported Proair Hfa Inhaler (Albuterol Sulfate) 8.5 Gm Hfa.aer.ad 1 Puff INH PRN Q6HRS PRN 03/29/17 Reported Impression . 1. Status asthmaticus 2. Acute Resp Failure 3. Hemoptysis 4. Acute bronchitis 5. Abnormal CT of chest differential includes infections, vasculitis Plan . 6 min walk did not need 02 serology is negative doubt vasuclitis d/c home follow up with pulm at home I made copies of all reports from pulm service and gave them to pt emphasize the importance of follow up went over side effects fo SAMANTHA Lisa MD Apr 04, 2017 13:07
--- NOTE | 2017-04-06 19:47 | DS ---
DATE OF DISCHARGE: 04/04/2017 CHIEF COMPLAINT: Status asthmaticus. HOSPITAL COURSE: The patient is a 22-year-old gentleman who presented to the hospital in acute status asthmaticus. He has not been taking his Advair for the past 6 months due to traveling. He was immediately placed on inhalers, steroids and intubation could be avoided. Pulmonary consult was obtained as well. He was found with significant eosinophilia as well as elevated IgE. Further workup for vasculitis was undertaken and was negative. The patient, however, had a slow recovery from a respiratory standpoint, but was able to tolerate ambulation without requiring additional oxygen. He was strongly urged to stop tobacco. Discharge was arranged on the . PHYSICAL EXAMINATION: VITAL SIGNS: Show a blood pressure of 113/64, heart rate of 65, respiratory rate at 14. He is afebrile. GENERAL: This is a 22-year-old gentleman, alert and oriented, in no acute distress. LUNGS: Fairly clear. HEART: Regular rate and rhythm. ABDOMEN: Has positive bowel sounds, soft, nontender. EXTREMITIES: Show no edema. DISCHARGE DIAGNOSIS: Status asthmaticus. DISCHARGE DISPOSITION: To home. DISCHARGE CONDITION: Improved. DISCHARGE MEDICATIONS: Please refer to MAR. DISCHARGE INSTRUCTIONS: The patient is to follow up with his pulmonary physician RUPERT once returning to home in [place]. FRIEDA JACKSON MD DR: UR/nts JOB#: [id number] / [id number] [place]
--- NOTE | 2017-04-07 17:29 | PATHOLOGY ---
CYTOPATHOLOGY REPORT CLINICAL HISTORY: Status asthmaticus SPECIMEN(S) RECEIVED: A.Bronchoalveolar lavage, RML FINAL DIAGNOSIS: Right middle lobe bronchoalveolar lavage, ThinPrep and silver stain: - No malignant cells identified. - Bronchial epithelial cells, few squamous epithelial cells, pulmonary macrophages, and scattered inflammatory cells identified. - Silver stain is negative for pneumocystis organisms and reveals rare small yeast. (JPM:mgr; 04/07/2017) PATHOLOGIST: Duarte Gonsales M.D. REPORT ELECTRONICALLY SIGNED BY: Duarte Gonsales M.D. DATE/TIME: 04/07/2017 17:28 GROSS PATHOLOGY: A. Bronchoalveolar lavage, RML: The specimen is submitted unfixed, labeled "Skylar Delgado". Received by the Cytology Department is eight mL of cloudy pink fluid. One ThinPrep slide was prepared for pap stain, One ThinPrep slide was prepared for silver stain. (mm 04.03.2017) TANK TERMINAL GAUGER(S): DIPIKA Real(ASCP) INITIAL CPT CODE(S): A; 69842, 21639, 54513, 75611 Professional services performed [place] [facility] [place] [address] Technical services performed by [facility] at [address] [place] [address], [address], [place] [address]. PATIENT: SKYLAR DELGADO /AGE: 702/04/1995 (Age: 22) SEX: M PATIENT #: [id number] ALT CASE #: SPECIMEN COLLECTION DATE: 04/03/2017 SPECIMEN RECEIVED DATE: 04/03/[address] [facility] [address] [place] [address], [address] [place] [address] PHONE: [phone] DIRECTOR: Waqas Yates M.D. * * * END OF REPORT * * *
== END 2017-04-04 14:02 | disposition home or self-care (01) | DRG 166 ==
LOC: ER 18:19 → 1 WEST ICU 20:58 → 6 SOUTH 04-01 12:59
PROVIDERS: ADMIT Internal Medicine; ATTEND Internal Medicine
PROC: 0B9D8ZX Drainage of Right Middle Lung Lobe, Via Natural or Artificial Opening Endoscopic, Diagnostic (ICD-10-PCS; principal; 2017-04-02 14:00)
DX: J45.902 Unspecified asthma with status asthmaticus (principal); J96.01 Acute respiratory failure with hypoxia; R04.2 Hemoptysis; R51 Headache; J20.9 Acute bronchitis, unspecified; M54.9 Dorsalgia, unspecified; Z87.891 Personal history of nicotine dependence
CPT/HCPCS: 99291; C8929; 31622; 36415; 36600; 71010; 71275; 80053; 82784; 82805; 85025; 85651; 86021; 86431; 87070; 87102; 87116; 87205; 87641; 94250; 94620; 94640; 94644; 94660; 94760; 96365; 96376; 99406; J0696; J1650; J2175; J2270; J2704; J2930; J7030; J7060; J7120; J7512; J7613; J7620; J7626; Q9967